=== PATIENT | female | born 1935 | race Caucasian/White ===

== ENCOUNTER 2019-08-24 09:52 | Inpatient (IN) | payer MEDICARE, OTHER ==
[2019-08-25] MEDS ORDERED: Polyethylene Glycol 3350 Powder 17 GM Packet PO PRN (13:41)
[2019-08-25] MEDS: Acetaminophen 325 MG Tab PO PRN ×2 (15:42→22:41)
--- NOTE | 2019-08-25 15:55 | PCM.HP.2 ---
H&P History of Present Illness - General Date of Service: 08/25/19 Admit Problem/Dx: Admission Diagnosis/Problem Admission Diagnosis/Problem Weakness Source of Information: Patient, Family, Old Records History Limitations: Reports: No Limitations - History of Present Illness Initial Comments - Free Text/Narative: Ms Mckenzie is an 84 yo female admitted to because of weakness and ambulatory dysfunction. She was in [facility] due to speech difficultly,encephalopathy secondary to hypertensive emergency, Initially thought o have a stroke but that was ruled out comprehensively. She does also have chronic kyphoscolioses and pain,s/p several surgeries including hip replacements. She lives with grandson who works and is unable to return home independently at this time.Other medical history includes dyslipidemia,anemia,hypercalcemia,hypomagnesemia and chronic kidney disease.She his a poor historian and this history was obtained with the aid if her son and prior records. LEFT HIP\FLANK\LEFT LEG\ACROSS ABDOMEN Pain Score (Numeric/FACES): 9 - Related Data Allergies/Adverse Reactions: Allergies Allergy/AdvReac Type Severity Reaction Status Date / Time No Known Allergies Allergy Verified 08/25/19 15:12 Home Medications: Home Meds Aspirin [Ecotrin EC] 81 mg PO DAILY 08/25/19 [History] Cyanocobalamin (Vitamin B12) [Vitamin B12] 500 mcg PO DAILY 08/25/19 [History] Famotidine 20 mg PO DAILY 08/25/19 [History] Fish Oil/[place]-3 Fatty Acids [Fish Oil 1,000 MG] 1 gm PO DAILY 08/25/19 [History ] Lidocaine/Menthol [Lidopatch] 1 patch TOP DAILY PRN 08/25/19 [History] Magnesium Chloride [Mag-64] 64 mg PO DAILY 08/25/19 [History] Metoprolol Succinate [Toprol XL] 200 mg PO DAILY 08/25/19 [History] NIFEdipine [Procardia XL] 60 mg PO DAILY 08/25/19 [History] Polyethylene Glycol 3350 [MiraLAX] 17 gm PO DAILY PRN 08/25/19 [History] atorvaSTATin [Lipitor] 40 mg PO BEDTIME 08/25/19 [History] Past Medical History HEENT History: Reports: Cataract, Impaired Vision Cardiovascular History: Reports: High Cholesterol, Hypertension, SOB on Exertion Respiratory History: Reports: SOB Gastrointestinal History: Reports: Other (See Below) Other Gastrointestinal History: NAUSEA AT TIMES. HSE COORDINATOR History: Reports: Musculoskeletal History: Reports: Arthritis, Back Pain, Chronic Neurological History: Reports: Other (See Below) Other Neuro History: ? CVA LIKE SYMPTOMS. NO CVA DIAGNOSISED THOUGH. - Infectious Disease History Infectious Disease History: Reports: Chicken Pox, Measles, Mumps - Past Surgical History HEENT Surgical History: Reports: Cataract Surgery Cardiovascular Surgical History: Reports: None Respiratory Surgical History: Reports: None GI Surgical History: Reports: Appendectomy Neurological Surgical History: Reports: None Musculoskeletal Surgical History: Reports: Hip Replacement Other Musculoskeletal Surgeries/Procedures:: TRINO. HIPS, HAD TWO BACK FUSIONS IN PAST. Social & Family History - Family History Family Medical History: Noncontributory - Tobacco Use Smoking Status *Q: Never Smoker Second Hand Smoke Exposure: No - Caffeine Use Caffeine Use: Reports: Coffee - Recreational Drug Use Recreational Drug Use: No H&P Review of Systems - Review of Systems: Review Of Systems: Comprehensive ROS is negative, except as noted in HPI. Exam - Exam Exam: See Below - Vital Signs Vital Signs: Last Vital Signs Temp 97.4 F 08/25/19 12:40 Pulse 64 08/25/19 12:40 Resp 18 08/25/19 12:40 BP 115/61 08/25/19 12:40 Pulse Ox 98 08/25/19 12:40 Weight: 49.101 kg - Exam General: Alert, Oriented HEENT: PERRLA Neck: Supple, Trachea Midline, 2 Lungs: Clear to Auscultation, Normal Respiratory Effort Cardiovascular: Regular Rate, Regular Rhythm GI/Abdominal Exam: Normal Bowel Sounds, Soft, Non-Tender, No Organomegaly, No Distention, No Abnormal Bruit, No Mass, Pelvis Stable (Female) Exam: Deferred Rectal (Female) Exam: Deferred Back Exam: Decreased Range of Motion, Paraspinal Tenderness, Vertebral Tenderness Extremities: Normal Inspection Skin: Warm Neurological: Cranial Nerves Intact Neuro Extensive - Mental Status: Oriented x3 Neuro Extensive - Motor, Sensory, Reflexes: CN II-XII Intact, Normal Gait, Normal Reflexes Psychiatric: Alert Sepsis Event Note - Evaluation Sepsis Screening Result: No Definite Risk - Focused Exam Vital Signs: Vital Signs Temp Pulse Resp BP Pulse Ox 08/25/19 12:40 97.4 F 64 18 115/61 98 Date Exam was Performed: 08/25/19 Time Exam was Performed: 20:08 - Problem List (1) Weakness SNOMED Code(s): 88233298 ICD Code: R53.1 - WEAKNESS Status: Acute Current Visit: Yes (2) HTN (hypertension) SNOMED Code(s): 96784705 ICD Code: I10 - ESSENTIAL (PRIMARY) HYPERTENSION Status: Acute Current Visit: Yes Qualifiers: Hypertension type: essential hypertension Qualified Code(s): I10 - Essential (primary) hypertension (3) Encephalopathy SNOMED Code(s): 34609106 ICD Code: G93.40 - ENCEPHALOPATHY, UNSPECIFIED Status: Acute Current Visit: Yes (4) Frail elderly SNOMED Code(s): 892594546 ICD Code: R54 - AGE-RELATED PHYSICAL DEBILITY Status: Acute Current Visit : Yes (5) Anemia SNOMED Code(s): 266780060 ICD Code: D64.9 - ANEMIA, UNSPECIFIED Status: Acute Current Visit: Yes Qualifiers: Anemia type: iron deficiency (6) Chronic back pain SNOMED Code(s): 600232635 ICD Code: M54.9 - DORSALGIA, UNSPECIFIED; G89.29 - OTHER CHRONIC PAIN Status: Acute Current Visit: Yes Qualifiers: Back pain location: low back pain Back pain laterality: left (7) Hypercalcemia SNOMED Code(s): 95621911 ICD Code: E83.52 - HYPERCALCEMIA Status: Acute Current Visit: Yes (8) Hypomagnesemia SNOMED Code(s): 160552571 ICD Code: E83.42 - HYPOMAGNESEMIA Status: Acute Current Visit: Yes (9) Kyphoscoliosis SNOMED Code(s): 998044537 ICD Code: M41.9 - SCOLIOSIS, UNSPECIFIED Status: Acute Current Visit: Yes (10) HLD (hyperlipidemia) SNOMED Code(s): 26260878 ICD Code: E78.5 - HYPERLIPIDEMIA, UNSPECIFIED Status: Acute Current Visit : Yes Problem List Initiated/Reviewed/Updated: Yes Orders Last 24hrs: Active Orders 24 hr Category Date Time Status Admission Status [Patient Status] [ADT] Routine ADT 08/25/19 12:30 Active Height and Weight [RC] .QFR Care 08/25/19 13:40 Active Oxygen Therapy [RC] PRN Care 08/25/19 13:40 Active Vital Signs [RC] PER UNIT ROUTINE Care 08/25/19 13:40 Active OT Evaluation and Treatment [CONS] Routine Cons 08/25/19 13:40 Active PT Evaluation and Treatment [CONS] Routine Cons 08/25/19 13:40 Active Regular Diet [DIET] Diet 08/25/19 Breakfast Active Acetaminophen [Tylenol] Med 08/25/19 15:19 Active 650 mg PO Q6H PRN Aspirin [Halfprin] Med 08/26/19 09:00 Active 81 mg PO DAILY Cyanocobalamin (Vitamin B12) [Vitamin B12] Med 08/26/19 09:00 Active 500 mcg PO DAILY Famotidine [Pepcid] Med 08/26/19 09:00 Active 20 mg PO DAILY Fish Oil/[place]-3 Fatty Acids [Fish Oil] Med 08/26/19 09:00 Active 1 gm PO DAILY Lidocaine 5% [Lidoderm 5%] Med 08/25/19 14:00 Active 700 mg TRDERM DAILY PRN Magnesium Chloride [Mag-64] Med 08/26/19 09:00 Active 64 mg PO DAILY Metoprolol Succinate [Toprol XL] Med 08/26/19 09:00 Active 200 mg PO DAILY NIFEdipine [Procardia XL] Med 08/26/19 09:00 Active 60 mg PO DAILY Polyethylene Glycol 3350 [MiraLAX] Med 08/25/19 13:41 Active 17 gm PO DAILY PRN Remove Patch Med 08/25/19 13:48 Active 1 brittany WOODY ASDIRECTED PRN atorvaSTATin [Lipitor] Med 08/25/19 21:00 Active 40 mg PO BEDTIME Code Status [Resuscitation Status] Routine Resus Stat 08/25/19 15:03 Ordered Medication Orders Acetaminophen (Tylenol) 650 mg PO Q6H PRN PRN Reason: Pain Last Admin: 08/25/19 15:42 Dose: 650 mg Aspirin (Halfprin) 81 mg PO DAILY ASHLEY Atorvastatin Calcium (Lipitor) 40 mg PO BEDTIME ASHLEY Cyanocobalamin (Vitamin B12) 500 mcg PO DAILY ASHLEY Famotidine (Pepcid) 20 mg PO DAILY ASHLEY Fish Oil (Fish Oil) 1 gm PO DAILY ASHLEY Lidocaine (Lidoderm 5%) 700 mg TRDERM DAILY PRN PRN Reason: PAIN Magnesium Chloride (Mag-64) 64 mg PO DAILY ASHLEY Metoprolol Succinate (Toprol Xl) 200 mg PO DAILY ASHLEY Miscellaneous Information (Remove Patch) 1 ea TRDERM ASDIRECTED PRN PRN Reason: LIDOCAINE REMOVAL Nifedipine (Procardia Xl) 60 mg PO DAILY ASHLEY Polyethylene Glycol (Miralax) 17 gm PO DAILY PRN PRN Reason: Constipation Assessment/Plan Comment:: Admit to SB,with PT and PT consult. Resume Meds from [facility].She is a DNR.
[2019-08-25] MEDS: atorvaSTATin 40 MG Tab PO SCH (20:43)
[2019-08-26] MEDS: Acetaminophen 325 MG Tab PO PRN (05:44)
[2019-08-26] MEDS: Fish Oil/Omega-3 Fatty Acids 1 Gm Cap PO SCH (08:30)
[2019-08-26] MEDS: Aspirin 81 MG Tab.EC PO SCH (08:37)
[2019-08-26] MEDS: Famotidine 20 MG Tab PO SCH (08:37)
[2019-08-26] MEDS: NIFEdipine 60 MG Tab.ER PO SCH (08:37)
[2019-08-26] MEDS: Magnesium Chloride 64 MG Tab.ER PO SCH (08:37)
[2019-08-26] MEDS: Cyanocobalamin (Vitamin B12) 500 MCG Tab PO SCH (08:38)
[2019-08-26] MEDS: Metoprolol Succinate 100 MG Tab.ER PO SCH (08:38)
[2019-08-26] MEDS: Lidocaine 5% 700 MG Patch TRDERM PRN (08:45)
[2019-08-26] MEDS: Acetaminophen 500 MG Tab PO SCH ×2 (13:40→20:48)
[2019-08-26] MEDS: atorvaSTATin 40 MG Tab PO SCH (20:48)
[2019-08-27] MEDS ORDERED: QUEtiapine 25 MG Tab PO PRN (08:27)
[2019-08-27] MEDS: Metoprolol Succinate 100 MG Tab.ER PO SCH (08:39)
[2019-08-27] MEDS: NIFEdipine 60 MG Tab.ER PO SCH (08:39)
[2019-08-27] MEDS: Acetaminophen 500 MG Tab PO SCH ×3 (08:39→21:17)
[2019-08-27] MEDS: Famotidine 20 MG Tab PO SCH (08:39)
[2019-08-27] MEDS: Fish Oil/Omega-3 Fatty Acids 1 Gm Cap PO SCH (08:40)
[2019-08-27] MEDS: Aspirin 81 MG Tab.EC PO SCH (08:40)
[2019-08-27] MEDS: Magnesium Chloride 64 MG Tab.ER PO SCH (08:40)
[2019-08-27] MEDS: Cyanocobalamin (Vitamin B12) 500 MCG Tab PO SCH (08:40)
[2019-08-27] MEDS: atorvaSTATin 40 MG Tab PO SCH (21:17)
[2019-08-28] MEDS: Aspirin 81 MG Tab.EC PO SCH (08:36)
[2019-08-28] MEDS: Fish Oil/Omega-3 Fatty Acids 1 Gm Cap PO SCH (08:36)
[2019-08-28] MEDS: Famotidine 20 MG Tab PO SCH (08:37)
[2019-08-28] MEDS: Cyanocobalamin (Vitamin B12) 500 MCG Tab PO SCH (08:37)
[2019-08-28] MEDS: Acetaminophen 500 MG Tab PO SCH ×3 (08:37→20:44)
[2019-08-28] MEDS: Magnesium Chloride 64 MG Tab.ER PO SCH (08:37)
[2019-08-28] MEDS: Metoprolol Succinate 100 MG Tab.ER PO SCH (08:37)
[2019-08-28] MEDS: Lidocaine 5% 700 MG Patch TRDERM PRN (08:38)
[2019-08-28] MEDS: NIFEdipine 60 MG Tab.ER PO SCH (08:38)
[2019-08-28] MEDS: atorvaSTATin 40 MG Tab PO SCH (20:43)
[2019-08-29] MEDS: Lidocaine 5% 700 MG Patch TRDERM PRN (08:02)
[2019-08-29] MEDS: Metoprolol Succinate 100 MG Tab.ER PO SCH (08:08)
[2019-08-29] MEDS: Famotidine 20 MG Tab PO SCH (08:08)
[2019-08-29] MEDS: Acetaminophen 500 MG Tab PO SCH ×3 (08:08→20:53)
[2019-08-29] MEDS: NIFEdipine 60 MG Tab.ER PO SCH (08:08)
[2019-08-29] MEDS: Cyanocobalamin (Vitamin B12) 500 MCG Tab PO SCH (08:09)
[2019-08-29] MEDS: Aspirin 81 MG Tab.EC PO SCH (08:09)
[2019-08-29] MEDS: Magnesium Chloride 64 MG Tab.ER PO SCH (08:09)
[2019-08-29] MEDS: Fish Oil/Omega-3 Fatty Acids 1 Gm Cap PO SCH (08:09)
[2019-08-29] MEDS: atorvaSTATin 40 MG Tab PO SCH (20:53)
[2019-08-30] MEDS: Magnesium Chloride 64 MG Tab.ER PO SCH (08:31)
[2019-08-30] MEDS: Aspirin 81 MG Tab.EC PO SCH (08:31)
[2019-08-30] MEDS: Fish Oil/Omega-3 Fatty Acids 1 Gm Cap PO SCH (08:31)
[2019-08-30] MEDS: Famotidine 20 MG Tab PO SCH (08:32)
[2019-08-30] MEDS: Acetaminophen 500 MG Tab PO SCH ×3 (08:32→20:39)
[2019-08-30] MEDS: Cyanocobalamin (Vitamin B12) 500 MCG Tab PO SCH (08:32)
[2019-08-30] MEDS: NIFEdipine 60 MG Tab.ER PO SCH (08:32)
[2019-08-30] MEDS: Metoprolol Succinate 100 MG Tab.ER PO SCH (08:33)
[2019-08-30] MEDS: Lidocaine 5% 700 MG Patch TRDERM SCH (08:35)
[2019-08-30] MEDS: atorvaSTATin 40 MG Tab PO SCH (20:38)
[2019-08-31] MEDS: Lidocaine 5% 700 MG Patch TRDERM SCH (08:41)
[2019-08-31] MEDS: Cyanocobalamin (Vitamin B12) 500 MCG Tab PO SCH (08:42)
[2019-08-31] MEDS: NIFEdipine 60 MG Tab.ER PO SCH (08:42)
[2019-08-31] MEDS: Fish Oil/Omega-3 Fatty Acids 1 Gm Cap PO SCH (08:43)
[2019-08-31] MEDS: Famotidine 20 MG Tab PO SCH (08:43)
[2019-08-31] MEDS: Aspirin 81 MG Tab.EC PO SCH (08:43)
[2019-08-31] MEDS: Magnesium Chloride 64 MG Tab.ER PO SCH (08:43)
[2019-08-31] MEDS: Acetaminophen 500 MG Tab PO SCH ×3 (08:43→20:45)
[2019-08-31] MEDS: Metoprolol Succinate 100 MG Tab.ER PO SCH (08:43)
[2019-08-31] MEDS: Naproxen 250 MG Tab PO SCH ×2 (09:56→20:44)
[2019-08-31] MEDS: atorvaSTATin 40 MG Tab PO SCH (20:45)
[2019-09-01] MEDS: Lidocaine 5% 700 MG Patch TRDERM SCH (07:56)
[2019-09-01] MEDS: Aspirin 81 MG Tab.EC PO SCH (08:02)
[2019-09-01] MEDS: Acetaminophen 500 MG Tab PO SCH ×2 (08:02→13:25)
[2019-09-01] MEDS: Cyanocobalamin (Vitamin B12) 500 MCG Tab PO SCH (08:02)
[2019-09-01] MEDS: Famotidine 20 MG Tab PO SCH (08:02)
[2019-09-01] MEDS: NIFEdipine 60 MG Tab.ER PO SCH (08:03)
[2019-09-01] MEDS: Magnesium Chloride 64 MG Tab.ER PO SCH (08:03)
[2019-09-01] MEDS: Fish Oil/Omega-3 Fatty Acids 1 Gm Cap PO SCH (08:03)
[2019-09-01] MEDS: Naproxen 250 MG Tab PO SCH (08:04)
[2019-09-01] MEDS: Metoprolol Succinate 100 MG Tab.ER PO SCH (08:11)
--- NOTE | 2019-09-01 13:58 | PCM.DCSUM1 ---
Discharge Summary - Hospital Course HPI Initial Comments: Ms Mckenzie is an 84 yo female admitted to because of weakness and ambulatory dysfunction. She was in [facility] due to speech difficultly,encephalopathy secondary to hypertensive emergency, Initially thought to have a stroke but that was ruled out comprehensively. She does also have chronic kyphoscolioses and pain, s/p several surgeries including hip replacements. She lives with grandson who works and is unable to return home independently at this time. Other medical history includes dyslipidemia, anemia, hypercalcemia, hypomagnesemia and chronic kidney disease. She is a poor historian and this history was obtained with the aid if her son and prior records. Diagnosis: Stroke: No - Discharge Data Discharge Date: 09/01/19 Discharge Disposition: DC/Tfer to [facility] Condition: Good - Referral to Home Health Primary Care Physician: Farhad Urban MD - Patient Summary/Data Consults: Consultations 08/25/19 13:40 OT Evaluation and Treatment [CONS] Routine Please Evaluate and Treat. OT Reason for Consult: ADL's This query below is only for informational purposes and is not editable. Admission Diagnosis/Problem: Weakness PT Evaluation and Treatment [CONS] Routine Please Evaluate and Treat. PT Reason for Consult: Ambulation This query below is only for informational purposes and is not editable. Admission Diagnosis/Problem: Weakness Hospital Course: PT/OT worked with patient requiring standby assistance with most of her cares due to her memory. Cueing for some ADLs. OT attempted to do a MOCA but patient refused to finish due to frustration. 2nd night of Swing bed stay, she had visual hallucinations seeing men in her room, staff was able to redirect. Got up to the bathroom at night, tried to urinate in the trash can, staff redirected though it took a few attempts. No behaviors noted. Seroquel 12.5 mg at bedtime as needed started but was not required for rest of stay. She has been discharged from rehab services but recommended Memory Care/assisted living did not feel she was safe to go back to her apartment. She will be going to [facility] and requested Sammy Arroyo PA-C at [facility] for primary. - Patient Instructions Diet: Regular Diet as Tolerated Activity: As Tolerated Driving: Do Not Drive Showering/Bathing: May Shower Notify Provider of: Fever, Increased Pain Other/Special Instructions: Follow up with Sammy Arroyo PA-C in 1-2 weeks to establish care at [facility]. - Discharge Plan *PRESCRIPTION DRUG MONITORING PROGRAM REVIEWED*: Not Applicable *COPY OF PRESCRIPTION DRUG MONITORING REPORT IN PATIENT YASMEEN: No Prescriptions/Med Rec: Acetaminophen [Tylenol Extra Strength] 1,000 mg PO TID 30 Days #90 tablet Aspirin [Ecotrin EC] 81 mg PO DAILY 30 Days #30 tablet. atorvaSTATin [Lipitor] 40 mg PO BEDTIME 30 Days #30 tablet Cyanocobalamin (Vitamin B12) [Vitamin B12] 500 mcg PO DAILY 30 Days #30 tablet Famotidine 20 mg PO DAILY 30 Days #30 tablet Fish Oil/[place]-3 Fatty Acids [Fish Oil 1,000 MG] 1 gm PO DAILY 30 Days #30 cap Lidocaine/Menthol [Lidopatch] 1 patch TOP DAILY PRN 30 Days #30 adh..patch PRN Reason: Pain Magnesium Chloride [Mag-64] 64 mg PO DAILY 30 Days #30 tab.er Metoprolol Succinate [Toprol XL] 200 mg PO DAILY 30 Days #30 tab.sr.24h Naproxen [Naprosyn] 250 mg PO Q12H 30 Days #60 tablet NIFEdipine [Procardia XL] 60 mg PO DAILY 30 Days #30 tab.er Polyethylene Glycol 3350 [MiraLAX] 17 gm PO DAILY PRN 30 Days #30 packet PRN Reason: Constipation QUEtiapine [SEROquel] 12.5 mg PO BEDTIME PRN 30 Days #30 tablet PRN Reason: Hallucinations Home Medications: Home Meds Acetaminophen [Tylenol Extra Strength] 1,000 mg PO TID 30 Days #90 tablet [Rx] Aspirin [Ecotrin EC] 81 mg PO DAILY 30 Days #30 tablet. 09/01/19 [Rx] Cyanocobalamin (Vitamin B12) [Vitamin B12] 500 mcg PO DAILY 30 Days #30 tablet 09/01/19 [Rx] Famotidine 20 mg PO DAILY 30 Days #30 tablet 09/01/19 [Rx] Fish Oil/[place]-3 Fatty Acids [Fish Oil 1,000 MG] 1 gm PO DAILY 30 Days #30 cap 09/01/19 [Rx] Lidocaine/Menthol [Lidopatch] 1 patch TOP DAILY PRN 30 Days #30 adh..patch 09/01 [Rx] Magnesium Chloride [Mag-64] 64 mg PO DAILY 30 Days #30 tab.er 09/01/19 [Rx] Metoprolol Succinate [Toprol XL] 200 mg PO DAILY 30 Days #30 tab.sr.24h [Rx] NIFEdipine [Procardia XL] 60 mg PO DAILY 30 Days #30 tab.er 09/01/19 [Rx] Naproxen [Naprosyn] 250 mg PO Q12H 30 Days #60 tablet 09/01/19 [Rx] Polyethylene Glycol 3350 [MiraLAX] 17 gm PO DAILY PRN 30 Days #30 packet [Rx] QUEtiapine [SEROquel] 12.5 mg PO BEDTIME PRN 30 Days #30 tablet 09/01/19 [Rx] Remove Patch 1 ea TRDERM 2000 each 09/01/19 [Rx] atorvaSTATin [Lipitor] 40 mg PO BEDTIME 30 Days #30 tablet 09/01/19 [Rx] Patient Handouts: Cholesterol, [id number]-[id number], Weakness, [id number]-Myez, Hypertension, [id number], Fall Prevention in Hospitals, Adult, Venous Thromboembolism Prevention Referrals: Sammy Arroyo PA [Physician Monitor Car Operator] - - Discharge Summary/Plan Comment DC Time >30 min.: Yes - General Info Date of Service: 09/01/19 Admission Dx/Problem (Free Text: having back pain this morning, doesn't want anything on her back. Up in chair. No chest pain or shortness of breath, abdominal pain. - Patient Data Vitals - Most Recent: Last Vital Signs Temp 97.5 F 09/01/19 08:00 Pulse 74 09/01/19 08:11 Resp 14 09/01/19 08:00 BP 157/66 H 09/01/19 08:11 Pulse Ox 98 09/01/19 08:00 Weight - Most Recent: 108 lb 4 oz Med Orders - Current: Current Medications Acetaminophen (Tylenol Extra Strength) 1,000 mg PO TID [facility] Last Admin: 09/01/19 13:25 Dose: 1,000 mg Aspirin (Halfprin) 81 mg PO DAILY [facility] Last Admin: 09/01/19 08:02 Dose: 81 mg Atorvastatin Calcium (Lipitor) 40 mg PO BEDTIME [facility] Last Admin: 08/31/19 20:45 Dose: 40 mg Cyanocobalamin (Vitamin B12) 500 mcg PO DAILY [facility] Last Admin: 09/01/19 08:02 Dose: 500 mcg Famotidine (Pepcid) 20 mg PO DAILY [facility] Last Admin: 09/01/19 08:02 Dose: 20 mg Fish Oil (Fish Oil) 1 gm PO DAILY [facility] Last Admin: 09/01/19 08:03 Dose: 1 gm Lidocaine (Lidoderm 5%) 700 mg TRDERM DAILY@0800 [facility] Last Admin: 09/01/19 07:56 Dose: 700 mg Magnesium Chloride (Mag-64) 64 mg PO DAILY [facility] Last Admin: 09/01/19 08:03 Dose: 64 mg Metoprolol Succinate (Toprol Xl) 200 mg PO DAILY [facility] Last Admin: 09/01/19 08:11 Dose: 200 mg Miscellaneous Information (Remove Patch) 1 ea TRDERM 2000 [facility] Last Admin: 08/31/19 20:45 Dose: 1 ea Naproxen (Naprosyn) 250 mg PO Q12H [facility] Last Admin: 09/01/19 08:04 Dose: 250 mg Nifedipine (Procardia Xl) 60 mg PO DAILY [facility] Last Admin: 09/01/19 08:03 Dose: 60 mg Polyethylene Glycol (Miralax) 17 gm PO DAILY PRN PRN Reason: Constipation Quetiapine Fumarate (Seroquel) 12.5 mg PO BEDTIME PRN PRN Reason: Hallucinations Discontinued Medications Acetaminophen (Tylenol) 650 mg PO Q6H PRN PRN Reason: Pain Last Admin: 08/26/19 05:44 Dose: 650 mg Lidocaine (Lidoderm 5%) 700 mg TRDERM DAILY PRN PRN Reason: PAIN Last Admin: 08/29/19 08:02 Dose: 700 mg Miscellaneous Information (Remove Patch) 1 ea TRDERM ASDIRECTED PRN PRN Reason: LIDOCAINE REMOVAL Last Admin: 08/28/19 21:00 Dose: 1 ea - Exam General: Reports: Alert, Cooperative, No Acute Distress Lungs: Reports: Clear to Auscultation, Normal Respiratory Effort Cardiovascular: Reports: Regular Rate, Regular Rhythm GI/Abdominal Exam: Normal Bowel Sounds, Soft, Non-Tender, No Distention Psy/Mental Status: Reports: Alert, Other (complaining of back pain, doesn't want anything on her back.)
== END 2019-09-01 14:50 | DRG 948 ==
LOC: FB.MS 08-25 12:30
PROVIDERS: ADMIT Family Medicine; ATTEND Family Medicine
DX: R53.1 Weakness (principal); G93.40 Encephalopathy, unspecified; M41.9 Scoliosis, unspecified; E78.5 Hyperlipidemia, unspecified; N18.9 Chronic kidney disease, unspecified; H54.7 Unspecified visual loss; I12.9 Hypertensive chronic kidney disease with stage 1 through stage 4 chronic kidney disease, or unspecified chronic kidney disease; G89.29 Other chronic pain; M19.90 Unspecified osteoarthritis, unspecified site; Z96.643 Presence of artificial hip joint, bilateral; D50.9 Iron deficiency anemia, unspecified; M54.5 Low back pain; E83.52 Hypercalcemia; E83.42 Hypomagnesemia; Z66 Do not resuscitate; R44.1 Visual hallucinations; Z98.49 Cataract extraction status, unspecified eye; Z79.82 Long term (current) use of aspirin; Z79.899 Other long term (current) drug therapy; Z90.49 Acquired absence of other specified parts of digestive tract; Z98.1 Arthrodesis status
CPT/HCPCS: 97129-GO; 97130-GO; 97161-GP; 97165-GO; 97530-GO; 97530-GP; 97535-GO; A9270-GY

== ENCOUNTER 2019-09-13 21:05 | Emergency (ER) | payer MEDICARE, OTHER ==
--- NOTE | 2019-09-13 21:41 | EDM.PDOC ---
ED HPI GENERAL MEDICAL PROBLEM - General Stated Complaint: HIGH POTASSIUM PER AMBULANCE Time Seen by Provider: 09/13/19 21:38 Source of Information: Reports: Patient History Limitations: Reports: No Limitations - History of Present Illness INITIAL COMMENTS - FREE TEXT/NARRATIVE: 84-year-old female who was brought to the emergency department via ambulance after an outside lab called with reported potassium of 6.4 that was performed through the clinic at [facility] on 09/12/2019. The patient is a resident of a memory care unit at [facility] and there have been no reported symptoms. I am unsure why the patient even had the test performed. The patient is unable to provide me with much in the way of history secondary to some dementia. She is able to tell me that she does have a history of anemia and chronic back pain. He is reporting low back pain and hip pain that is a chronic and continual problem for her. There has been no reports of nausea or vomiting. The patient denies any nausea present. She also reports that she has been eating and drinking normally. She will neither quantitate or qualitate her back pain but does report that she has this pain and seems to be in discomfort with any movement but once again this is chronic. No difficulty breathing or cough. She is not on potassium supplementation. This is really all the history that I can obtain. There are no other associated signs or symptoms. There are no other modifying factors. Onset: Today (Results called to the emergency department nurse around 6 PM tonight) Duration: Constant Location: Reports: Back (Chronic) Quality: Reports: Other (She cannot describe or relate this) Improves with: Reports: None Worsens with: Reports: None Context: Reports: Other (As above) Associated Symptoms: Reports: No Other Symptoms (No other symptoms known.) Treatments REFURBISH TECHNICIAN: Reports: Other (see below) (Nothing) - Related Data Allergies Allergy/AdvReac Type Severity Reaction Status Date / Time No Known Allergies Allergy Verified 08/25/19 15:12 Home Meds: Home Meds Acetaminophen [Tylenol Extra Strength] 1,000 mg PO TID 30 Days #90 tablet [Rx] Aspirin [Ecotrin EC] 81 mg PO DAILY 30 Days #30 tablet. 09/01/19 [Rx] Cyanocobalamin (Vitamin B12) [Vitamin B12] 500 mcg PO DAILY 30 Days #30 tablet 01/16/20 [Rx] Famotidine 20 mg PO DAILY 30 Days #30 tablet 09/01/19 [Rx] Fish Oil/[place]-3 Fatty Acids [Fish Oil 1,000 MG] 1 gm PO DAILY 30 Days #30 cap 09/01/19 [Rx] Lidocaine/Menthol [Lidopatch] 1 patch TOP DAILY PRN 30 Days #30 adh..patch 09/01 [Rx] Magnesium Chloride [Mag-64] 64 mg PO DAILY 30 Days #30 tab.er 09/01/19 [Rx] Metoprolol Succinate [Toprol XL] 200 mg PO DAILY 30 Days #30 tab.sr.24h [Rx] NIFEdipine [Procardia XL] 60 mg PO DAILY 30 Days #30 tab.er 09/01/19 [Rx] Naproxen [Naprosyn] 250 mg PO Q12H 30 Days #60 tablet 09/01/19 [Rx] QUEtiapine [SEROquel] 12.5 mg PO BEDTIME PRN 30 Days #30 tablet 09/01/19 [Rx] Remove Patch 1 ea TRDERM 2000 each 09/01/19 [Rx] atorvaSTATin [Lipitor] 40 mg PO BEDTIME 30 Days #30 tablet 09/01/19 [Rx] polyethylene glycoL 3350 [MiraLAX] 17 gm PO DAILY PRN 30 Days #30 packet [Rx] Past Medical History HEENT History: Reports: Cataract, Impaired Vision Cardiovascular History: Reports: High Cholesterol, Hypertension Gastrointestinal History: Reports: Chronic Constipation Musculoskeletal History: Reports: Arthritis, Back Pain, Chronic Psychiatric History: Reports: Dementia - Infectious Disease History Infectious Disease History: Reports: Chicken Pox, Measles, Mumps - Past Surgical History HEENT Surgical History: Reports: Cataract Surgery GI Surgical History: Reports: Appendectomy Musculoskeletal Surgical History: Reports: Hip Replacement Other Musculoskeletal Surgeries/Procedures:: TRINO. HIPS, HAD TWO BACK FUSIONS IN PAST. Social & Family History - Tobacco Use Smoking Status *Q: Unknown Ever Smoked (Nonsmoker) - Caffeine Use Caffeine Use: Reports: Coffee - Alcohol Use Alcohol Use History: No - Living Situation & Occupation Living situation: Reports: Other (She is a resident of the memory unit at [facility]) ED ROS GENERAL - Review of Systems Review Of Systems: Unable To Obtain Reason Not Obtained: Memory issues; Patient is unreliable ED EXAM, GENERAL - Physical Exam Exam: See Below Exam Limited By: No Limitations General Appearance: Alert, WD/WN, Mild Distress (Appears in some pain but is wake and alert. She does not appear toxic.) Eye Exam: Bilateral Eye: EOMI, Normal Inspection, PERRL Ears: Normal External Exam, Hearing Grossly Normal Ear Exam: Bilateral Ear: Auricle Normal Nose: Normal Inspection, Normal Mucosa, No Blood Throat/Mouth: Normal Inspection, Normal Oropharynx, Normal Voice, No Airway Compromise Head: Atraumatic, Normocephalic Neck: Normal Inspection, Supple, Non-Tender, Full Range of Motion Respiratory/Chest: No Respiratory Distress, Lungs Clear, Normal Breath Sounds, No Accessory Muscle Use, Chest Non-Tender Cardiovascular: Normal Peripheral Pulses, Regular Rate, Rhythm, No JVD Peripheral Pulses: 2+: Radial (L), Radial (R), Dorsalis Pedis (L), Dorsalis Pedis (R) GI/Abdominal: Normal Bowel Sounds, Soft, Non-Tender, No Mass Back Exam: Normal Inspection, Other (Diffuse lumbar back tenderness) Extremities: Normal Inspection, Normal Range of Motion, Non-Tender, No Pedal Edema, Normal Capillary Refill Neurological: Alert, CN II-XII Intact, No Motor/Sensory Deficits, Disoriented Skin Exam: Warm, Dry, Intact, Normal Color, No Rash EKG INTERPRETATION EKG Date: 09/13/19 Time: 21:48 Rhythm: NSR Rate (Beats/Min): 65 [place]: Normal P-Wave: Present QRS: Normal ST-T: Normal QT: Normal Comparison: NA - No Prior EKG Course - Vital Signs Last Recorded V/S: Last Vital Signs Temp 36.4 C 09/13/19 21:15 Pulse 67 09/13/19 21:15 Resp 16 09/13/19 21:15 BP 136/55 L 09/13/19 21:15 Pulse Ox 98 09/13/19 21:15 Orthostatic Blood Pressure [ 126/52 Supine] - Orders/Labs/Meds Orders: Active Orders 24 hr Category Date Time Status EKG Documentation Completion [RC] ASDIRECTED Care 09/13/19 21:41 Active Orthostatic Vital Signs [RC] ONETIME Care 09/13/19 22:21 Active EKG 12 Lead [EK] Routine Ther 09/13/19 21:41 Ordered Labs: Laboratory Tests 01/28/20 01/28/20 Range/Units 21:55 21:55 WBC 5.4 (4.5-12.0) X10-3/uL RBC 2.90 L (3.23-5.20) x10(6)uL Hgb 9.3 L (11.5-15.5) g/dL Hct 27.1 L (30.0-51.3) % MCV 93.7 (80-96) fL MCH 32.3 (27.7-33.6) pg MCHC 34.4 (32.2-35.4) g/dL RDW 13.8 (11.5-15.5) % Plt Count 274 (125-369) X10(3)uL MPV 7.7 (7.4-10.4) fL Neut % (Auto) 60.3 (46-82) % Lymph % (Auto) 24.3 (13-37) % [place] % (Auto) 11.2 (4-12) % Eos % (Auto) 4 (1.0-5.0) % Baso % (Auto) 0 (0-2) % Neut # (Auto) 3.3 (1.6-8.3) # Lymph # (Auto) 1.3 (0.6-5.0) # [place] # (Auto) 0.6 (0.0-1.3) # Eos # (Auto) 0.2 (0.0-0.8) # Baso # (Auto) 0.0 (0.0-0.2) # Sodium 142 (135-145) mmol/L Potassium 5.5 H (3.5-5.3) mmol/L Chloride 109 (100-110) mmol/L Carbon Dioxide 23 (21-32) mmol/L BUN 40 H (7-18) mg/dL Creatinine 1.4 H (0.55-1.02) mg/dL Est Cr Clr Drug Dosing TNP Estimated GFR (MDRD) 36 L (>60) BUN/Creatinine Ratio 28.6 H (9-20) Glucose 129 H (80-116) mg/dL Calcium 10.1 (8.6-10.2) mg/dL Magnesium 1.3 L (1.8-2.5) mg/dL Meds: Medications Discontinued Medications Generic Name Dose Route Start Last Admin Trade Name Freq PRN Reason Stop Dose Admin Magnesium Oxide 800 mg 09/13/19 22:23 Magnesium Oxide PO 09/13/19 22:24 ONETIME ONE - Re-Assessments/Exams Free Text/Narrative Re-Assessment/Exam: 09/14/19 01:16: Patient's potassium today was 5.5. She did have a hemoglobin of 9.3. Her BUN and creatinine are also 40 and 1.4. I have no old labs for comparison other than the report of the potassium of 6.4 from the outside lab. I did have the nursing staff do orthostatic vital signs on the patient and these were normal. I also did a rectal exam on the patient and the stool was Hemoccult negative. The patient also has reported to us that she has a history of anemia. With her potassium now at 5.5 and patient's reports that she is to have her blood counts checked again later this week, I feel that she is stable for discharge back to the [facility] unit facility. Unfortunately, the patient would not be able to go by taxi and there is no one available at [facility] to take the patient back. The patient's son will not be available until 3 AM and the plan will be for him to take her back to [facility] at that time. Departure - Departure Time of Disposition: 02:05 Disposition: DC/Tfer to [facility] 03 Condition: Good (Stable) Clinical Impression: Condition not found Anemia Qualifiers: Anemia type: unspecified type Qualified Code(s): D64.9 - Anemia, unspecified Chronic back pain Qualifiers: Back pain location: back pain in unspecified location Back pain laterality: unspecified Qualified Code(s): M54.9 - Dorsalgia, unspecified Chronic renal insufficiency Qualifiers: Chronic kidney disease stage: unspecified stage Qualified Code(s): N18.9 - Chronic kidney disease, unspecified - Discharge Information Referrals: Farhad Urban MD [Primary Care Provider] - Forms: ED Department Discharge Additional Instructions: The patient's potassium level today was 5.5. She also had evidence of chronic kidney disease and an anemia. These all will need to be followed up through her primary provider this week with recheck of the potassium and further testing for her anemia as per her primary doctor. Back to the emergency department for vomiting, fever or any other concerning sign or symptom. Sepsis Event Note - Focused Exam Vital Signs: Vital Signs Temp Pulse Resp BP Pulse Ox 09/13/19 21:15 36.4 C 67 16 136/55 L 98 Date Exam was Performed: 09/14/19 Time Exam was Performed: 02:46 - My Orders Last 24 Hours: My Active Orders 09/13/19 21:41 EKG Documentation Completion [RC] ASDIRECTED EKG 12 Lead [EK] Routine 09/13/19 22:21 Orthostatic Vital Signs [RC] ONETIME - Assessment/Plan Last 24 Hours: My Active Orders 09/13/19 21:41 EKG Documentation Completion [RC] ASDIRECTED EKG 12 Lead [EK] Routine 09/13/19 22:21 Orthostatic Vital Signs [RC] ONETIME
[2019-09-13] MEDS ORDERED: Magnesium Oxide 400 MG Tab PO ONE (22:23)
== END 2019-09-14 02:15 ==
LOC: FB.ED 21:05
DX: M54.5 Low back pain (principal); G89.29 Other chronic pain; D64.9 Anemia, unspecified; I12.9 Hypertensive chronic kidney disease with stage 1 through stage 4 chronic kidney disease, or unspecified chronic kidney disease; N18.9 Chronic kidney disease, unspecified; E78.00 Pure hypercholesterolemia, unspecified; Z79.82 Long term (current) use of aspirin; Z79.899 Other long term (current) drug therapy
CPT/HCPCS: 36415; 80048; 82272; 83735; 85025; 93005; 99284; 99285-25

== ENCOUNTER 2020-09-04 07:51 | Emergency (ER) | payer MEDICARE, OTHER ==
[2020-09-04] MEDS ORDERED: Acetaminophen 500 MG Tab PO ONE ×2 (09:08→09:48)
[2020-09-04] MEDS ORDERED: Ketorolac 30 MG/ML SDV IVPUSH ONE (09:08)
[2020-09-04] MEDS ORDERED: traMADol 50 MG Tab PO ONE (09:48)
[2020-09-04] MEDS ORDERED: Naproxen 500 MG Tab PO ONE (09:48)
--- NOTE | 2020-09-04 10:28 | CR ---
INDICATION: Fall. BILATERAL HIPS WITH PELVIS: Six images of the pelvis and hips were obtained with frontal and lateral projections of the hips and an AP view of the pelvis. Examination was obtained 09/04/20 - no comparison. Bilateral total hip arthroplasties are noted which appear to be in good position and alignment. There is an appearance of an acute chip fracture fragment along the lateral aspect of the right femoral component at the shaft-greater intertrochanteric interface. Minimal lateral offset of that chip fracture fragment is seen. Deformity is noted at the inferior and superior pubic rami on the right compatible with healed fracture sites. No complicating process is seen at the left total hip arthroplasty. Sacroiliac joints show evidence of degenerative change with no definite acute fracture or dislocation. The right SEBASTIAN grossly appears to be intact except as noted above for the chip fracture fragment adjacent to the femoral component at the greater trochanter - shaft. IMPRESSION: 1. There appears to be an acute chip fracture fragment at the greater trochanter - shaft lateral aspect right proximal femur. Otherwise the total hip arthroplasties bilaterally appear to be satisfactory. 2. What appear to be old fractures with deformity of the inferior and superior pubic rami on the right are noted. 3. Degenerative changes sacroiliac joints. 4. Fusion partially visualized lumbar spine with rods and pedicle screws appearing intact. [facility]
--- NOTE | 2020-09-04 11:16 | EDM.PDOC ---
ED HPI GENERAL MEDICAL PROBLEM - General Chief Complaint: Lower Extremity Injury/Pain Stated Complaint: FELL Time Seen by Provider: 09/04/20 08:00 Source of Information: Reports: Patient History Limitations: Reports: No Limitations - History of Present Illness INITIAL COMMENTS - FREE TEXT/NARRATIVE: Patient presented to the ED because of a right hi pain. She slipped and fell in the bathroom and landed on her right hip. There was no LOC, but is complaining of 7/10 pain worse with movements. No other injuries sustained. - Related Data Allergies Allergy/AdvReac Type Severity Reaction Status Date / Time No Known Allergies Allergy Verified 09/04/20 08:12 Home Meds: Home Meds Acetaminophen [Tylenol Extra Strength] 1,000 mg PO TID 30 Days #90 tablet 09/01/19 [Rx] Aspirin [Ecotrin EC] 81 mg PO DAILY 30 Days #30 tablet.dr 09/01/19 [Rx] Cyanocobalamin (Vitamin B12) [Vitamin B12] 500 mcg PO DAILY 30 Days #30 tablet 09/01/19 [Rx] Famotidine 20 mg PO DAILY 30 Days #30 tablet 09/01/19 [Rx] Fish Oil/[place]-3 Fatty Acids [Fish Oil 1,000 MG] 1 gm PO DAILY 30 Days #30 cap 09/01/19 [Rx] Magnesium Chloride [Mag-64] 64 mg PO DAILY 30 Days #30 tab.er 09/01/19 [Rx] Metoprolol Succinate [Toprol XL] 200 mg PO DAILY 30 Days #30 tab.sr.24h 09/01/19 [Rx] NIFEdipine [Procardia XL] 60 mg PO DAILY 30 Days #30 tab.er 09/01/19 [Rx] QUEtiapine [SEROquel] 12.5 mg PO BEDTIME PRN 30 Days #30 tablet 09/01/19 [Rx] atorvaSTATin [Lipitor] 40 mg PO BEDTIME 30 Days #30 tablet 09/01/19 [Rx] polyethylene glycoL 3350 [MiraLAX] 17 gm PO DAILY PRN 30 Days #30 packet 09/01/19 [Rx] .Licocaine Hcl/Hydrocortisone 1 applic TOP Q8H PRN 09/17/19 [History] Naproxen [Naprosyn] 250 mg PO BID 09/17/19 [History] Naproxen 500 mg PO Q12H #30 tablet 09/04/20 [Rx] traMADol [Ultram] 100 mg PO Q12H PRN #30 tab 09/04/20 [Rx] Past Medical History HEENT History: Reports: Cataract, Impaired Vision Other HEENT History: wears eye glasses. Cardiovascular History: Reports: High Cholesterol, Hypertension Respiratory History: Reports: SOB Other Respiratory History: Patient states her back problems are causing respiratory concerns. Gastrointestinal History: Reports: Chronic Constipation, GERD Other Gastrointestinal History: NAUSEA AT TIMES. Genitourinary History: Reports: Other (See Below) Other Genitourinary History: CKD PRIMARY CARE PHYSICIAN History: Reports: Musculoskeletal History: Reports: Arthritis, Back Pain, Chronic, Osteoarthritis, Osteoporosis, Other (See Below) Other Musculoskeletal History: kyphosis. scoliosis. Neurological History: Reports: Other (See Below) Other Neuro History: ? CVA LIKE SYMPTOMS. NO CVA DIAGNOSISED THOUGH. Psychiatric History: Reports: Dementia Hematologic History: Reports: Anemia, Iron Deficiency - Infectious Disease History Infectious Disease History: Reports: Chicken Pox, Measles, Mumps - Past Surgical History HEENT Surgical History: Reports: Cataract Surgery Cardiovascular Surgical History: Reports: None Respiratory Surgical History: Reports: None GI Surgical History: Reports: Appendectomy Neurological Surgical History: Reports: None Musculoskeletal Surgical History: Reports: Hip Replacement Other Musculoskeletal Surgeries/Procedures:: TRINO. HIPS, HAD TWO BACK FUSIONS IN PAST. Social & Family History - Family History Family Medical History: No Pertinent Family History - Caffeine Use Caffeine Use: Reports: Coffee - Recreational Drug Use Recreational Drug Use: No - Living Situation & Occupation Living situation: Reports: Other (She is a resident of the memory unit at [facility]) Review of Systems - Review of Systems Review Of Systems: See Below Constitutional: Reports: No Symptoms Ears: Reports: No Symptoms Nose: Reports: No Symptoms Mouth/Throat: Reports: No Symptoms Respiratory: Reports: No Symptoms Cardiovascular: Reports: No Symptoms GI/Abdominal: Reports: No Symptoms Genitourinary: Reports: No Symptoms Musculoskeletal: Reports: Other (Right hip pain) Skin: Reports: No Symptoms Neurological: Reports: No Symptoms ED EXAM, GENERAL - Physical Exam Exam: See Below Exam Limited By: No Limitations General Appearance: Alert, No Apparent Distress Ears: Normal External Exam, Normal [place] Nose: Normal Inspection, Normal Mucosa, No Blood Throat/Mouth: Normal Inspection Head: Atraumatic, Normocephalic Neck: Normal Inspection, Supple, Non-Tender, Full Range of Motion Respiratory/Chest: No Respiratory Distress, Lungs Clear, Normal Breath Sounds Cardiovascular: Normal Peripheral Pulses, Regular Rate, Rhythm, No Edema, No Gallop GI/Abdominal: Normal Bowel Sounds, Soft, Non-Tender, No Organomegaly Back Exam: Normal Inspection, Full Range of Motion Extremities: Normal Inspection, Other (tenderness over the right hip) Course - Vital Signs Text/Narrative:: Xray result discussed with patient and son Patient refused to be transferred to [facility] and doesn't want to have anymore surgery. She said she just want conservative management for now. I did discussed the case with Dr Viera(Ortho @ [facility]) and she recommended use of a walker wit assist from bed to chair and once it's healed in 6-6 weeks she can have physical therapy. Last Recorded V/S: Last Vital Signs Temp 36.4 C 09/04/20 07:51 Pulse 71 09/04/20 07:51 Resp 18 09/04/20 07:51 BP 151/40 H 09/04/20 07:51 Pulse Ox 100 09/04/20 07:51 - Orders/Labs/Meds Meds: Medications Discontinued Medications Generic Name Dose Route Start Last Admin Trade Name Aaronq PRN Reason Stop Dose Admin Acetaminophen 1,000 mg 09/04/20 09:08 09/04/20 09:49 Tylenol Extra Strength PO 09/04/20 09:09 Not Given ONETIME ONE Acetaminophen 1,000 mg 09/04/20 09:48 09/04/20 09:57 Tylenol Extra Strength PO 09/04/20 09:49 1,000 mg ONETIME ONE Administration Ketorolac Tromethamine 30 mg 09/04/20 09:08 09/04/20 09:49 Toradol IVPUSH 09/04/20 09:09 Not Given ONETIME ONE Naproxen 500 mg 09/04/20 09:48 09/04/20 09:57 Naprosyn PO 09/04/20 09:49 500 mg ONETIME ONE Administration Tramadol HCl 100 mg 09/04/20 09:48 09/04/20 09:55 Ultram PO 09/04/20 09:49 100 mg ONETIME ONE Administration Departure - Departure Time of Disposition: 11:30 Disposition: DC/Tfer to [facility] Condition: Good Clinical Impression: Femoral fracture, Closed fracture of femur - Discharge Information Prescriptions: Naproxen 500 mg PO Q12H #30 tablet traMADol [Ultram] 100 mg PO Q12H PRN #30 tab PRN Reason: Pain Instructions: Hip Fracture Referrals: PCP,None [Primary Care Provider] - Forms: ED Department Discharge Additional Instructions: Please read discharge instructions on hep fracture Take the following pain medication all at the same time for better pain relief Naproxen 500 mg,tylenol 1000, tramadol 1000 mg every 12 hours as needed for pain You can use your walker with assist from your bed to a chair In 6-8 weeks when your fracture is healed, your primary doctor will order for a physical therapy Sepsis Event Note (ED) - Focused Exam Vital Signs: Vital Signs Temp Pulse Resp BP Pulse Ox 09/04/20 07:51 36.4 C 71 18 151/40 H 100
== END 2020-09-04 12:03 ==
LOC: FB.ED 07:51
DX: S72.91XA Unspecified fracture of right femur, initial encounter for closed fracture (principal); E78.00 Pure hypercholesterolemia, unspecified; K21.9 Gastro-esophageal reflux disease without esophagitis; I12.9 Hypertensive chronic kidney disease with stage 1 through stage 4 chronic kidney disease, or unspecified chronic kidney disease; N18.9 Chronic kidney disease, unspecified; D63.1 Anemia in chronic kidney disease; M19.90 Unspecified osteoarthritis, unspecified site; Z79.82 Long term (current) use of aspirin; Z79.899 Other long term (current) drug therapy; W01.0XXA Fall on same level from slipping, tripping and stumbling without subsequent striking against object, initial encounter; Y92.002 Bathroom of unspecified non-institutional (private) residence as the place of occurrence of the external cause
CPT/HCPCS: 73523; 99284; 99285; A9270-GY

== ENCOUNTER 2020-09-24 20:49 | Emergency (ER) | payer MEDICARE, OTHER ==
[2020-09-24] MEDS ORDERED: Sodium Chloride 0.9% 10 ML Syringe FLUSH PRN (21:13)
[2020-09-24] MEDS ORDERED: Sodium Chloride 0.9% 1,000 ML IV SCH (21:15)
--- NOTE | 2020-09-24 22:03 | EDM.PDOC ---
ED HPI GENERAL MEDICAL PROBLEM - General Chief Complaint: General Stated Complaint: high potassium Time Seen by Provider: 09/24/20 20:55 Source of Information: Reports: Patient History Limitations: Reports: No Limitations - History of Present Illness INITIAL COMMENTS - FREE TEXT/NARRATIVE: Patient presented to the ED from the [facility] because of an elevated K of 6.7 She also c/o weakness and and diarrhea for 3 days. there is no nausea or vomiting. No fever/chills, cough or cold symptoms. right hip Pain Score (Numeric/FACES): 4 - Related Data Allergies Allergy/AdvReac Type Severity Reaction Status Date / Time No Known Allergies Allergy Verified 09/24/20 21:11 Home Meds: Home Meds Acetaminophen [Tylenol Extra Strength] 1,000 mg PO TID 30 Days #90 tablet 09/01/19 [Rx] Cyanocobalamin (Vitamin B12) [Vitamin B12] 500 mcg PO DAILY 30 Days #30 tablet 09/01/19 [Rx] Fish Oil/[place]-3 Fatty Acids [Fish Oil 1,000 MG] 1 gm PO DAILY 30 Days #30 cap 09/01/19 [Rx] Magnesium Chloride [Mag-64] 64 mg PO DAILY 30 Days #30 tab.er 09/01/19 [Rx] Metoprolol Succinate [Toprol XL] 200 mg PO DAILY 30 Days #30 tab.sr.24h 09/01/19 [Rx] NIFEdipine [Procardia XL] 60 mg PO DAILY 30 Days #30 tab.er 09/01/19 [Rx] QUEtiapine [SEROquel] 12.5 mg PO BEDTIME PRN 30 Days #30 tablet 09/01/19 [Rx] atorvaSTATin [Lipitor] 40 mg PO BEDTIME 30 Days #30 tablet 09/01/19 [Rx] polyethylene glycoL 3350 [MiraLAX] 17 gm PO DAILY PRN 30 Days #30 packet 09/01/19 [Rx] .Licocaine Hcl/Hydrocortisone 1 applic TOP Q8H PRN 09/17/19 [History] Naproxen 500 mg PO Q12H #30 tablet 09/04/20 [Rx] Diclofenac Sodium 1 applic TOP QID 09/24/20 [History] Gabapentin [Neurontin] 100 mg PO BEDTIME 09/24/20 [History] traMADol [Ultram] 100 mg PO TID 09/24/20 [History] Past Medical History HEENT History: Reports: Cataract, Impaired Vision Other HEENT History: wears eye glasses. Cardiovascular History: Reports: High Cholesterol, Hypertension Respiratory History: Reports: SOB Other Respiratory History: Patient states her back problems are causing respiratory concerns. Gastrointestinal History: Reports: Chronic Constipation, GERD Other Gastrointestinal History: NAUSEA AT TIMES. 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 scoliosis. Neurological History: Reports: Other (See Below) Other Neuro History: ? CVA LIKE SYMPTOMS. NO CVA DIAGNOSISED THOUGH. Psychiatric History: Reports: Dementia Hematologic History: Reports: Anemia, Iron Deficiency - Infectious Disease History Infectious Disease History: Reports: Chicken Pox, Measles, Mumps - Past Surgical History HEENT Surgical History: Reports: Cataract Surgery Cardiovascular Surgical History: Reports: None Respiratory Surgical History: Reports: None GI Surgical History: Reports: Appendectomy Neurological Surgical History: Reports: None Musculoskeletal Surgical History: Reports: Hip Replacement Other Musculoskeletal Surgeries/Procedures:: TRINO. HIPS, HAD TWO BACK FUSIONS IN PAST. Social & Family History - Family History Family Medical History: No Pertinent Family History - Caffeine Use Caffeine Use: Reports: Coffee - Living Situation & Occupation Living situation: Reports: Other (She is a resident of the memory unit at [facility]) ED ROS GENERAL - Review of Systems Review Of Systems: See Below Constitutional: Reports: No Symptoms HEENT: Reports: No Symptoms Respiratory: Reports: No Symptoms Cardiovascular: Reports: No Symptoms Endocrine: Reports: No Symptoms GI/Abdominal: Reports: Diarrhea, Nausea Musculoskeletal: Reports: No Symptoms Skin: Reports: No Symptoms Neurological: Reports: No Symptoms Psychiatric: Reports: No Symptoms ED EXAM, GENERAL - Physical Exam Exam: See Below Exam Limited By: No Limitations General Appearance: Alert, No Apparent Distress Eye Exam: Bilateral Eye: PERRL Ears: Normal External Exam, Normal Canal Nose: Normal Inspection, Normal Mucosa, No Blood Throat/Mouth: Normal Inspection Head: Atraumatic, Normocephalic Neck: Normal Inspection, Supple, Non-Tender, Full Range of Motion Respiratory/Chest: No Respiratory Distress, Lungs Clear, Normal Breath Sounds, No Accessory Muscle Use, Chest Non-Tender Cardiovascular: Normal Peripheral Pulses, Regular Rate, Rhythm, No Edema, No Gallop, No JVD, No Murmur, No Rub GI/Abdominal: Normal Bowel Sounds, Soft, Non-Tender, No Organomegaly Back Exam: Normal Inspection, Full Range of Motion Extremities: Normal Inspection, Normal Range of Motion Course - Vital Signs Text/Narrative:: Labs/EKG was discussed with patient Repeat K=4.7 NS 1 L bolus Last Recorded V/S: Last Vital Signs Temp 36.1 C 09/24/20 20:50 Pulse 70 09/24/20 23:30 Resp 16 09/24/20 23:30 BP 121/55 L 09/24/20 23:30 Pulse Ox 97 09/24/20 23:30 - Orders/Labs/Meds Orders: Active Orders 24 hr Category Date Time Status Saline Lock Insert [OM.PC] Routine Oth 09/24/20 21:13 Ordered EKG 12 Lead [EK] Routine Ther 09/24/20 20:57 Ordered Labs: Laboratory Tests 09/24/20 09/24/20 09/24/20 Range/Units 21:15 21:15 21:15 WBC 11.3 H (3.0-10.3) x10-3/uL RBC 2.63 L (3.60-5.20) x10(6)uL Hgb 8.2 L (11.4-15.5) g/dL Hct 26.3 L (34.2-48.2) % MCV 100.1 (76.7-100.5) fL MCH 31.4 (23.9-33.9) pg MCHC 31.4 L (31.9-34.8) g/dL RDW 14.7 (12.3-16.5) % Plt Count 370 (151-488) x10(3)uL MPV 7.5 (7.1-12.4) fL Neut % (Auto) 75.7 (30.8-76.2) % Lymph % (Auto) 8.9 L (18.4-52.1) % [place] % (Auto) 13.0 (4.4-15.7) % Eos % (Auto) 2.1 (0.6-8.1) % Baso % (Auto) 0.3 (0.2-1.5) % Neut # (Auto) 8.6 H (1.5-6.3) x10-3/uL Lymph # (Auto) 1.0 (1.0-4.4) x10-3/uL [place] # (Auto) 1.5 H (0.3-1.0) x10-3/uL Eos # (Auto) 0.2 (0.0-0.8) x10-3/uL Baso # (Auto) 0.0 (0.0-0.1) x10-3/uL Sodium 134 L (135-145) mmol/L Potassium 4.7 (3.5-5.3) mmol/L Chloride 102 D (100-110) mmol/L Carbon Dioxide 17 L (21-32) mmol/L BUN 48 H (7-18) mg/dL Creatinine 1.3 H (0.55-1.02) mg/dL Est Cr Clr Drug Dosing TNP Estimated GFR (MDRD) 39 L (>60) BUN/Creatinine Ratio 36.9 H (9-20) Glucose 125 H (80-116) mg/dL Calcium 10.6 H (8.6-10.2) mg/dL Total Bilirubin 0.2 (0.1-1.3) mg/dL AST 26 H (5-25) IU/L ALT 24 (12-36) U/L Alkaline Phosphatase 261 H (56-112) IU/L Troponin I 8.0 (4.0-60.3) pg/mL Total Protein 7.0 (6.0-8.0) g/dL Albumin 2.5 L (3.2-4.6) g/dL Globulin 4.5 g/dL Albumin/Globulin Ratio 0.6 Meds: Medications Discontinued Medications Generic Name Dose Route Start Last Admin Trade Name Freq PRN Reason Stop Dose Admin Sodium Chloride 1,000 mls @ 999 mls/hr 09/24/20 21:15 09/24/20 22:20 Normal Saline IV 999 mls/hr ASDIRECTED ASHLEY Administration Sodium Chloride 10 ml 09/24/20 21:13 Saline Flush FLUSH ASDIRECTED PRN Keep Vein Open Departure - Departure Time of Disposition: 23:00 Disposition: Home, Self-Care 01 Condition: Good Clinical Impression: Dehydration - Discharge Information Instructions: Viral Gastroenteritis, Adult, Dehydration, Adult, [id number] Referrals: Farhad Urban MD [Primary Care Provider] - Forms: ED Department Discharge Additional Instructions: Please read discharge instructions on dehydration Increase oral fluids Imodium 1-2 tablets every 6 hours as needed for diarrhrea Follow up as needed Sepsis Event Note (ED) - Focused Exam Vital Signs: Vital Signs Pulse Resp BP Pulse Ox 09/24/20 23:30 70 16 121/55 L 97 - My Orders Last 24 Hours: My Active Orders 09/24/20 20:57 EKG 12 Lead [EK] Routine 09/24/20 21:13 Saline Lock Insert [OM.PC] Routine - Assessment/Plan Last 24 Hours: My Active Orders 09/24/20 20:57 EKG 12 Lead [EK] Routine 09/24/20 21:13 Saline Lock Insert [OM.PC] Routine
== END 2020-09-24 23:40 | disposition home or self-care (01) ==
LOC: FB.ED 20:49
DX: E86.0 Dehydration (principal); E78.00 Pure hypercholesterolemia, unspecified; I12.9 Hypertensive chronic kidney disease with stage 1 through stage 4 chronic kidney disease, or unspecified chronic kidney disease; N18.9 Chronic kidney disease, unspecified; M41.9 Scoliosis, unspecified; Z79.899 Other long term (current) drug therapy
CPT/HCPCS: 36415; 80053; 84484; 85025; 93005; 99285; J7030; 99283

== ENCOUNTER 2021-01-01 10:26 | Observation (INO) | payer MEDICARE, OTHER ==
[2021-01-01] MEDS ORDERED: Sodium Chloride 0.9% 10 ML Syringe FLUSH PRN (11:39)
[2021-01-01] MEDS ORDERED: Labetalol 20 MG/4 ML Syringe IVPUSH ONE (11:39)
[2021-01-01] MEDS ORDERED: Acetaminophen 500 MG Tab PO ONE (11:42)
[2021-01-01] MEDS ORDERED: traMADol 50 MG Tab PO STA (11:42)
[2021-01-01] MEDS ORDERED: Metoprolol Succinate 100 MG Tab.ER PO STA (11:44)
[2021-01-01] MEDS ORDERED: NIFEdipine 60 MG Tab.ER PO STA (11:44)
[2021-01-01] MEDS ORDERED: Sodium Chloride 0.9% 1,000 ML IV SCH ×2 (11:45→14:00)
--- NOTE | 2021-01-01 11:55 | EDM.PDOC ---
ED HPI GENERAL MEDICAL PROBLEM - General Chief Complaint: General Stated Complaint: UNRESPONSIVE Time Seen by Provider: 01/01/21 10:30 Source of Information: Reports: Patient History Limitations: Reports: Altered Mental Status - History of Present Illness INITIAL COMMENTS - FREE TEXT/NARRATIVE: Patient presented to the ED because of an unresponsive episode this morning. Staff at the [facility] was trying to wake her up but she was unresponsive. Patient said that she was having a foggy kind of feeling that's why she wasn't responding. She has poor appetite for the past week and her health is going downhill per [facility] staff. She normally ambulate and can bathe herself now she can't do all those things. There is no fever, chills,cough or cold. No N/V/D noted. Lower back Pain Score (Numeric/FACES): 3 DENIES ANY PAIN WHEN ASKED AT PRESENT TIME. Pain Score (Numeric/FACES): 0 - Related Data Allergies Allergy/AdvReac Type Severity Reaction Status Date / Time No Known Allergies Allergy Verified 01/01/21 15:07 Home Meds: Home Meds Cyanocobalamin (Vitamin B12) [Vitamin B12] 500 mcg PO DAILY 30 Days #30 tablet 09/01/19 [Rx] Fish Oil/Many-3 Fatty Acids [Fish Oil 1,000 MG] 1 gm PO DAILY 30 Days #30 cap 09/01/19 [Rx] Metoprolol Succinate [Toprol XL] 200 mg PO DAILY 30 Days #30 tab.sr.24h 09/01/19 [Rx] NIFEdipine [Procardia XL] 60 mg PO DAILY 30 Days #30 tab.er 09/01/19 [Rx] atorvaSTATin [Lipitor] 40 mg PO BEDTIME 30 Days #30 tablet 09/01/19 [Rx] polyethylene glycoL 3350 [MiraLAX] 17 gm PO DAILY PRN 30 Days #30 packet 09/01/19 [Rx] .Licocaine Hcl/Hydrocortisone 1 applic RECTAL Q8H PRN 09/17/19 [History] Diclofenac Sodium 2 gm TOP QID 09/24/20 [History] Gabapentin [Neurontin] 100 mg PO BEDTIME 09/24/20 [History] traMADol [Ultram] 100 mg PO TID 09/24/20 [History] Acetaminophen [Tylenol Extra Strength] 1,000 mg PO TID 01/01/21 [History] Acetaminophen [Tylenol Extra Strength] 500 mg PO Q12H PRN 01/01/21 [History] Celecoxib [CeleBREX] 100 mg PO DAILY PRN 01/01/21 [History] Lidocaine 5% [Lidoderm 5%] 1 patch TOP DAILY 01/01/21 [History] Loperamide [Imodium] 2 mg PO BID PRN 01/01/21 [History] Magnesium Chloride [Mag-64] 2 tab PO DAILY 01/01/21 [History] Naproxen 500 mg PO Q12H PRN 01/01/21 [History] QUEtiapine [SEROquel] 12.5 mg PO BEDTIME PRN 01/01/21 [History] cephALEXin [Keflex] 500 mg PO TID 01/01/21 [History] Past Medical History HEENT History: Reports: Cataract, Impaired Vision Other HEENT History: wears eye glasses. Cardiovascular History: Reports: High Cholesterol, Hypertension Respiratory History: Reports: SOB Other Respiratory History: Patient states her back problems are causing respiratory concerns. Gastrointestinal History: Reports: Chronic Constipation, GERD Other Gastrointestinal History: NAUSEA AT TIMES. 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 scoliosis. right hip fracture unfixed Neurological History: Reports: Other (See Below) Other Neuro History: ? CVA LIKE SYMPTOMS. NO CVA DIAGNOSISED THOUGH. Psychiatric History: Reports: Dementia Hematologic History: Reports: Anemia, Iron Deficiency - Infectious Disease History Infectious Disease History: Reports: Chicken Pox, Measles, Mumps - Past Surgical History HEENT Surgical History: Reports: Cataract Surgery Cardiovascular Surgical History: Reports: None Respiratory Surgical History: Reports: None GI Surgical History: Reports: Appendectomy Neurological Surgical History: Reports: None Musculoskeletal Surgical History: Reports: Hip Replacement Other Musculoskeletal Surgeries/Procedures:: TRINO. HIPS, HAD TWO BACK FUSIONS IN PAST. Social & Family History - Family History Family Medical History: No Pertinent Family History - Tobacco Use Tobacco Use Status *Q: Unknown Ever Used Tobacco - Caffeine Use Caffeine Use: Reports: Coffee - Recreational Drug Use Recreational Drug Use: No - Living Situation & Occupation Living situation: Reports: Other (She is a resident of the memory unit at [facility]) ED ROS GENERAL - Review of Systems Review Of Systems: See Below Constitutional: Reports: Weakness HEENT: Reports: No Symptoms Respiratory: Reports: No Symptoms Cardiovascular: Reports: No Symptoms Endocrine: Reports: No Symptoms GI/Abdominal: Reports: No Symptoms : Reports: No Symptoms Musculoskeletal: Reports: Other (Rt hip pain) Skin: Reports: No Symptoms Neurological: Reports: Weakness Psychiatric: Reports: No Symptoms ED EXAM, GENERAL - Physical Exam Exam: See Below Exam Limited By: No Limitations General Appearance: Lethargic Eye Exam: Bilateral Eye: PERRL Ears: Normal External Exam, Normal Canal Nose: Normal Inspection, Normal Mucosa, No Blood Throat/Mouth: Normal Inspection, Normal Lips, Normal Teeth Head: Atraumatic, Normocephalic Neck: Normal Inspection, Supple, Non-Tender, Full Range of Motion Respiratory/Chest: No Respiratory Distress, Lungs Clear, Normal Breath Sounds, No Accessory Muscle Use, Chest Non-Tender Cardiovascular: Normal Peripheral Pulses, Regular Rate, Rhythm, No Edema, No Gallop, No JVD, No Murmur, No Rub GI/Abdominal: Normal Bowel Sounds, Soft, Non-Tender, No Organomegaly Back Exam: Normal Inspection, Full Range of Motion Extremities: Normal Inspection, Normal Range of Motion, Non-Tender, No Pedal Edema, Normal Capillary Refill Neurological: Alert, Oriented, CN II-XII Intact, Slow to Respond Psychiatric: Normal Affect Course - Vital Signs Text/Narrative:: Lab/CXR result was reviewed and discussed with patient NS 1 L in 2 hours Tramadol 100 mg PO x1 Rocephin 1 gm iV x 1 Nifedipine 670 mg PO x1 Metoprolol Succinate 200 mg PO x1 Code Status: DNR/DNI Case discussed with Dr Matt Last Recorded V/S: Last Vital Signs Temp 36.9 C 01/01/21 18:48 Pulse 58 L 01/01/21 18:48 Resp 18 01/01/21 18:48 BP 167/65 H 01/01/21 18:48 Pulse Ox 96 01/01/21 18:48 - Orders/Labs/Meds Orders: Active Orders 24 hr Category Date Time Status Sodium Chloride 0.9% [Saline Flush] Med 01/01/21 11:39 Active 10 ml FLUSH ASDIRECTED PRN Saline Lock Insert [OM.PC] Routine Oth 01/01/21 11:39 Ordered Medication Orders Acetaminophen (Acetaminophen 500 Mg Tab) 500 mg PO Q12H PRN PRN Reason: Pain Acetaminophen (Acetaminophen 500 Mg Tab) 1,000 mg PO TID [facility] Last Admin: 01/01/21 20:31 Dose: 1,000 mg Documented by: IMTIAZ Atorvastatin Calcium (Atorvastatin 40 Mg Tab *Ptom) 40 mg PO BEDTIME [facility] Last Admin: 01/01/21 20:31 Dose: 40 mg Documented by: IMTIAZ Ceftriaxone Sodium (Ceftriaxone 1 Gm Vial) 1 gm IVPUSH Q24H [facility] Last Admin: 01/01/21 14:01 Dose: 1 gm Documented by: LIS Celecoxib (Celecoxib 100 Mg Cap) 100 mg PO DAILY PRN PRN Reason: Pain Cyanocobalamin (Cyanocobalamin (Vitamin B12) 500 Mcg Tab *Ptom) 500 mcg PO DAILY [facility] Diclofenac Sodium (Diclofenac Sodium 1% Gel 100 Gm Tube) 2 gm TOP QID [facility] Last Admin: 01/01/21 20:34 Dose: 1 applic Documented by: Admin: 01/01/21 17:30 Dose: 1 applic Documented by: DORA Enoxaparin Sodium (Enoxaparin 30 Mg/0.3 Ml Syringe) 30 mg SUBCUT Q24H [facility] Last Admin: 01/01/21 15:48 Dose: 30 mg Documented by: DOAR Fish Oil (Fish Oil/Many-3 Fatty Acids 1 Gm Cap *Ptom) 1 gm PO DAILY [facility] Gabapentin (Gabapentin 100 Mg Cap *Ptom) 100 mg PO BEDTIME [facility] Last Admin: 01/01/21 20:32 Dose: 100 mg Documented by: IMTIAZ Magnesium Chloride (Magnesium Chloride 64 Mg Tab.Er *Ptom) 128 mg PO DAILY [facility] Nifedipine (Nifedipine 60 Mg Tab.Er *Ptom) 60 mg PO DAILY [facility] Non-Formulary Medication (.Licocaine Hcl/Hydrocortisone) 1 applic RECTAL Q8H PRN PRN Reason: Hemmorhoids Pain/Itch Non-Formulary Medication (Lidocaine 5% [Lidoderm 5%]) 1 patch TOP DAILY [facility] Metoprolol Er 200mg (Tab *Ptom) 0 each PO DAILY [facility] Ondansetron HCl (Ondansetron 4 Mg/2 Ml Sdv) 4 mg IVPUSH Q4H PRN PRN Reason: Nausea/Vomiting Polyethylene Glycol (Polyethylene Glycol 3350 Powder 17 Gm Packet) 17 gm PO DAILY PRN PRN Reason: Constipation Quetiapine Fumarate (Quetiapine 25 Mg Tab) 12.5 mg PO BEDTIME PRN PRN Reason: Sleep Senna/Docusate Sodium (Docusate Sodium/Sennosides 50-8.6 Mg Tab) 1 tab PO BID PRN PRN Reason: Constipation Sodium Chloride (Sodium Chloride 0.9% 10 Ml Syringe) 10 ml FLUSH ASDIRECTED PRN PRN Reason: Keep Vein Open Last Admin: 01/01/21 12:10 Dose: 10 ml Documented by: LIS Tramadol HCl (Tramadol 50 Mg Tab) 100 mg PO TID ASHLEY Last Admin: 01/01/21 20:38 Dose: 100 mg Documented by: IMTIAZ Labs: Laboratory Tests 01/01/21 01/01/21 01/01/21 Range/Units 10:55 10:55 10:55 WBC 7.1 (3.0-10.3) x10-3/uL RBC 4.32 (3.60-5.20) x10(6)uL Hgb 13.1 D (11.4-15.5) g/dL Hct 40.9 D (34.2-48.2) % MCV 94.8 (76.7-100.5) fL MCH 30.4 (23.9-33.9) pg MCHC 32.1 (31.9-34.8) g/dL RDW 14.0 (12.3-16.5) % Plt Count 235 (151-488) x10(3)uL MPV 8.7 (7.1-12.4) fL Neut % (Auto) 59.3 (30.8-76.2) % Lymph % (Auto) 25.9 (18.4-52.1) % [place] % (Auto) 11.6 (4.4-15.7) % Eos % (Auto) 2.9 (0.6-8.1) % Baso % (Auto) 0.3 (0.2-1.5) % Neut # (Auto) 4.2 (1.5-6.3) x10-3/uL Lymph # (Auto) 1.8 (1.0-4.4) x10-3/uL [place] # (Auto) 0.8 (0.3-1.0) x10-3/uL Eos # (Auto) 0.2 (0.0-0.8) x10-3/uL Baso # (Auto) 0.0 (0.0-0.1) x10-3/uL Sodium 136 (135-145) mmol/L Potassium 4.9 (3.5-5.3) mmol/L Chloride 101 (100-110) mmol/L Carbon Dioxide 25 (21-32) mmol/L BUN 28 H D (7-18) mg/dL Creatinine 1.2 H (0.55-1.02) mg/dL Est Cr Clr Drug Dosing 24.17 mL/min Estimated GFR (MDRD) 43 L (>60) BUN/Creatinine Ratio 23.3 H (9-20) Glucose 102 (80-116) mg/dL Lactic Acid (0.4-2.0) mmol/L Calcium 10.6 H (8.6-10.2) mg/dL Total Bilirubin 0.2 (0.1-1.3) mg/dL AST 39 H D (5-25) IU/L ALT 35 D (12-36) U/L Alkaline Phosphatase 298 H (56-112) IU/L Troponin I 7.7 (4.0-60.3) pg/mL Total Protein 7.9 (6.0-8.0) g/dL Albumin 3.5 (3.2-4.6) g/dL Globulin 4.4 g/dL Albumin/Globulin Ratio 0.8 SARS-CoV-2 RNA (SANDOVAL) (NEGATIVE) 01/01/21 01/01/21 Range/Units 10:55 11:50 WBC (3.0-10.3) x10-3/uL RBC (3.60-5.20) x10(6)uL Hgb (11.4-15.5) g/dL Hct (34.2-48.2) % MCV (76.7-100.5) fL MCH (23.9-33.9) pg MCHC (31.9-34.8) g/dL RDW (12.3-16.5) % Plt Count (151-488) x10(3)uL MPV (7.1-12.4) fL Neut % (Auto) (30.8-76.2) % Lymph % (Auto) (18.4-52.1) % [place] % (Auto) (4.4-15.7) % Eos % (Auto) (0.6-8.1) % Baso % (Auto) (0.2-1.5) % Neut # (Auto) (1.5-6.3) x10-3/uL Lymph # (Auto) (1.0-4.4) x10-3/uL [place] # (Auto) (0.3-1.0) x10-3/uL Eos # (Auto) (0.0-0.8) x10-3/uL Baso # (Auto) (0.0-0.1) x10-3/uL Sodium (135-145) mmol/L Potassium (3.5-5.3) mmol/L Chloride (100-110) mmol/L Carbon Dioxide (21-32) mmol/L BUN (7-18) mg/dL Creatinine (0.55-1.02) mg/dL Est Cr Clr Drug Dosing mL/min Estimated GFR (MDRD) (>60) BUN/Creatinine Ratio (9-20) Glucose (80-116) mg/dL Lactic Acid 1.2 (0.4-2.0) mmol/L Calcium (8.6-10.2) mg/dL Total Bilirubin (0.1-1.3) mg/dL AST (5-25) IU/L ALT (12-36) U/L Alkaline Phosphatase (56-112) IU/L Troponin I (4.0-60.3) pg/mL Total Protein (6.0-8.0) g/dL Albumin (3.2-4.6) g/dL Globulin g/dL Albumin/Globulin Ratio SARS-CoV-2 RNA (SANDOVAL) Negative (NEGATIVE) Meds: Medications Generic Name Dose Route Start Last Admin Trade Name Freq PRN Reason Stop Dose Admin Acetaminophen 500 mg 01/01/21 13:52 Acetaminophen 500 Mg Tab PO Q12H PRN Pain Acetaminophen 1,000 mg 01/01/21 21:00 01/01/21 20:31 Acetaminophen 500 Mg Tab PO 1,000 mg TID ASHLEY Administration Atorvastatin Calcium 40 mg 01/01/21 21:00 01/01/21 20:31 Atorvastatin 40 Mg Tab *Ptom PO 40 mg BEDTIME ASHLEY Administration Ceftriaxone Sodium 1 gm 01/01/21 14:00 01/01/21 14:01 Ceftriaxone 1 Gm Vial IVPUSH 1 gm Q24H ASHLEY Administration Celecoxib 100 mg 01/01/21 13:52 Celecoxib 100 Mg Cap PO DAILY PRN Pain Cyanocobalamin 500 mcg 01/02/21 09:00 Cyanocobalamin (Vitamin B12) 500 Mcg Tab *Ptom PO DAILY [facility] Diclofenac Sodium 2 gm 01/01/21 17:00 01/01/21 20:34 Diclofenac Sodium 1% Gel 100 Gm Tube TOP 1 applic QID ASHLEY Administration Enoxaparin Sodium 30 mg 01/01/21 14:00 01/01/21 15:48 Enoxaparin 30 Mg/0.3 Ml Syringe SUBCUT 30 mg Q24H ASHLEY Administration Fish Oil 1 gm 01/02/21 09:00 Fish Oil/Many-3 Fatty Acids 1 Gm Cap *Ptom PO DAILY ASHLEY Gabapentin 100 mg 01/01/21 21:00 01/01/21 20:32 Gabapentin 100 Mg Cap *Ptom PO 100 mg BEDTIME [facility] Administration Magnesium Chloride 128 mg 01/02/21 09:00 Magnesium Chloride 64 Mg Tab.Er *Ptom PO DAILY [facility] Nifedipine 60 mg 01/02/21 09:00 Nifedipine 60 Mg Tab.Er *Ptom PO DAILY [facility] Non-Formulary Medication 1 applic 01/01/21 13:52 .Licocaine Hcl/Hydrocortisone RECTAL Q8H PRN Hemmorhoids Pain/Itch Non-Formulary Medication 1 patch 01/02/21 09:00 Lidocaine 5% [Lidoderm 5%] TOP DAILY [facility] Metoprolol Er 200mg 0 each 01/02/21 09:00 Tab *Ptom PO DAILY [facility] Ondansetron HCl 4 mg 01/01/21 13:41 Ondansetron 4 Mg/2 Ml Sdv IVPUSH Q4H PRN Nausea/Vomiting Polyethylene Glycol 17 gm 01/01/21 13:52 Polyethylene Glycol 3350 Powder 17 Gm Packet PO DAILY PRN Constipation Quetiapine Fumarate 12.5 mg 01/01/21 13:52 Quetiapine 25 Mg Tab PO BEDTIME PRN Sleep Senna/Docusate Sodium 1 tab 01/01/21 13:41 Docusate Sodium/Sennosides 50-8.6 Mg Tab PO BID PRN Constipation Sodium Chloride 10 ml 01/01/21 11:39 01/01/21 12:10 Sodium Chloride 0.9% 10 Ml Syringe FLUSH 10 ml ASDIRECTED PRN Administration Keep Vein Open Tramadol HCl 100 mg 01/01/21 21:00 01/01/21 20:38 Tramadol 50 Mg Tab PO 100 mg TID ASHLEY Administration Discontinued Medications Generic Name Dose Route Start Last Admin Trade Name Freq PRN Reason Stop Dose Admin Acetaminophen 1,000 mg 01/01/21 11:42 01/01/21 11:57 Acetaminophen 500 Mg Tab PO 01/01/21 11:43 1,000 mg ONETIME ONE Administration Sodium Chloride 1,000 mls @ 500 mls/hr 01/01/21 11:45 01/01/21 12:10 Normal Saline IV 500 mls/hr ASDIRECTED ASHLEY Administration Sodium Chloride 1,000 mls @ 100 mls/hr 01/01/21 14:00 01/01/21 14:11 Normal Saline IV 100 mls/hr ASDIRECTED ASHLEY Administration Labetalol HCl 20 mg 01/01/21 11:39 01/01/21 12:11 Labetalol 20 Mg/4 Ml Syringe IVPUSH 01/01/21 11:40 Not Given ONETIME ONE Protocol Metoprolol Succinate 200 mg 01/01/21 11:44 01/01/21 11:58 Metoprolol Succinate 100 Mg Tab.Er PO 01/01/21 11:45 200 mg NOW STA Administration Miscellaneous Information 1 ea 01/01/21 21:00 01/01/21 20:50 Remove Patch TRDERM 01/01/21 21:01 Not Given ONETIME ONE Naproxen 500 mg 01/01/21 13:52 Naproxen 500 Mg Tab PO Q12H PRN Pain Nifedipine 60 mg 01/01/21 11:44 01/01/21 11:59 Nifedipine 60 Mg Tab.Er PO 01/01/21 11:45 60 mg NOW STA Administration Tramadol HCl 50 mg 01/01/21 11:42 01/01/21 11:57 Tramadol 50 Mg Tab PO 01/01/21 11:43 50 mg NOW STA Administration Tramadol HCl 50 mg 01/01/21 14:45 01/01/21 15:47 Tramadol 50 Mg Tab PO 01/01/21 14:46 50 mg ONETIME ONE Administration Departure - Departure Time of Disposition: 14:30 Disposition: Refer to Observation Clinical Impression: UTI, Urinary tract infectious disease, Dehydration, Encephalopathy, CKD (chronic kidney disease) - Discharge Information Sepsis Event Note (ED) - Evaluation Sepsis Screening Result: No Definite Risk - Focused Exam Vital Signs: Vital Signs Temp Pulse Pulse Resp BP BP Pulse Ox 01/01/21 13:11 72 18 162/60 H 98 01/01/21 11:58 76 194/76 H 01/01/21 11:31 72 18 194/72 H 97 01/01/21 10:26 36.4 C 68 18 185/64 H 96 - My Orders Last 24 Hours: My Active Orders 01/01/21 11:39 Sodium Chloride 0.9% [Saline Flush] 10 ml FLUSH ASDIRECTED PRN Saline Lock Insert [OM.PC] Routine - Assessment/Plan Last 24 Hours: My Active Orders 01/01/21 11:39 Sodium Chloride 0.9% [Saline Flush] 10 ml FLUSH ASDIRECTED PRN Saline Lock Insert [OM.PC] Routine
[2021-01-01] MEDS ORDERED: Ondansetron 4 MG/2 ML SDV IVPUSH PRN (13:41)
[2021-01-01] MEDS ORDERED: Acetaminophen 500 MG Tab PO PRN (13:52)
[2021-01-01] MEDS ORDERED: HYDROCORTISONE RECTAL PRN (13:52)
[2021-01-01] MEDS ORDERED: QUEtiapine 25 MG Tab PO PRN (13:52)
[2021-01-01] MEDS ORDERED: Celecoxib 100 MG Cap PO PRN (13:52)
[2021-01-01] MEDS ORDERED: Naproxen 500 MG Tab PO PRN (13:52)
[2021-01-01] MEDS ORDERED: Polyethylene Glycol 3350 Powder 17 GM Packet PO PRN (13:52)
[2021-01-01] MEDS ORDERED: LIDOCAINE RECTAL PRN (13:52)
[2021-01-01] MEDS ORDERED: Acetaminophen 500 MG Tab PO SCH (14:00)
[2021-01-01] MEDS ORDERED: cefTRIAXone 1 GM Vial IVPUSH SCH (14:00)
[2021-01-01] MEDS ORDERED: traMADol 50 MG Tab PO SCH (14:00)
[2021-01-01] MEDS ORDERED: cefTRIAXone 1 GM in Sodium Chloride 0.9% 50 ML IV SCH (14:00)
[2021-01-01] MEDS ORDERED: Enoxaparin 30 MG/0.3 ML Syringe SUBCUT SCH (14:00)
[2021-01-01] MEDS ORDERED: traMADol 50 MG Tab PO ONE (14:45)
--- NOTE | 2021-01-01 16:52 | CR ---
CHEST ONE VIEW 9825 INDICATION: Weakness. An AP upright portable view of the chest was obtained 01/01/2021--no comparison. The heart did not appear grossly enlarged. The aorta is tortuous with minimal calcification in the arch. Overlying EKG lead snaps are noted. Heavy markings at the lung bases are emphasized by the poor inspiration and may represent fibrosis or simply the poor inspiration. Minimal patchy pneumonia is difficult to entirely exclude especially at the right lung base due to the poor inspiration. No definite consolidating pneumonia or definite effusion was seen. Degenerative changes are noted at the glenohumeral joints, right greater than left. IMPRESSION: 1. No definite acute process but difficult to exclude fibrosis versus patchy bronchopneumonia and possibly atelectasis at the lung bases especially on the right. 2. ASD aorta. MTDD
[2021-01-01] MEDS: Diclofenac Sodium 1% Gel 100 GM Tube TOP SCH ×2 (17:30→20:34)
--- NOTE | 2021-01-01 17:48 | PCM.HP.2 ---
H&P History of Present Illness - General Date of Service: 01/01/21 Admit Problem/Dx: Admission Diagnosis/Problem Admission Diagnosis/Problem UTI (urinary tract infection) due to urinary indwelling catheter Source of Information: Patient, Old Records History Limitations: Reports: No Limitations - History of Present Illness Initial Comments - Free Text/Narative: Is an 85-year-old female patient states that she was sleeping in the chair and this morning the staff at [facility] came to arouse her and they couldn't because she was unresponsive. He brought her to the ER and was found to be dehydrated and have a UTI. She says she can't think very clearly at this point. She denies fevers or she does feel cold. She denies chest pain, shortness of breath, dysuria, pyuria, hematuria, abdominal pain or diarrhea. Lower back Pain Score (Numeric/FACES): 3 DENIES ANY PAIN WHEN ASKED AT PRESENT TIME. Pain Score (Numeric/FACES): 0 - Related Data Allergies/Adverse Reactions: Allergies Allergy/AdvReac Type Severity Reaction Status Date / Time No Known Allergies Allergy Verified 01/01/21 15:07 Home Medications: Home Meds Cyanocobalamin (Vitamin B12) [Vitamin B12] 500 mcg PO DAILY 30 Days #30 tablet 09/01/19 [Rx] Fish Oil/[place]-3 Fatty Acids [Fish Oil 1,000 MG] 1 gm PO DAILY 30 Days #30 cap 09/01/19 [Rx] Metoprolol Succinate [Toprol XL] 200 mg PO DAILY 30 Days #30 tab.sr.24h 09/01/19 [Rx] NIFEdipine [Procardia XL] 60 mg PO DAILY 30 Days #30 tab.er 09/01/19 [Rx] atorvaSTATin [Lipitor] 40 mg PO BEDTIME 30 Days #30 tablet 09/01/19 [Rx] polyethylene glycoL 3350 [MiraLAX] 17 gm PO DAILY PRN 30 Days #30 packet 09/01/19 [Rx] .Licocaine Hcl/Hydrocortisone 1 applic RECTAL Q8H PRN 09/17/19 [History] Diclofenac Sodium 2 gm TOP QID 09/24/20 [History] Gabapentin [Neurontin] 100 mg PO BEDTIME 09/24/20 [History] traMADol [Ultram] 100 mg PO TID 09/24/20 [History] Acetaminophen [Tylenol Extra Strength] 1,000 mg PO TID 01/01/21 [History] Acetaminophen [Tylenol Extra Strength] 500 mg PO Q12H PRN 01/01/21 [History] Celecoxib [CeleBREX] 100 mg PO DAILY PRN 01/01/21 [History] Lidocaine 5% [Lidoderm 5%] 1 patch TOP DAILY 01/01/21 [History] Loperamide [Imodium] 2 mg PO BID PRN 01/01/21 [History] Magnesium Chloride [Mag-64] 2 tab PO DAILY 01/01/21 [History] Naproxen 500 mg PO Q12H PRN 01/01/21 [History] QUEtiapine [SEROquel] 12.5 mg PO BEDTIME PRN 01/01/21 [History] cephALEXin [Keflex] 500 mg PO TID 01/01/21 [History] Past Medical History HEENT History: Reports: Cataract, Impaired Vision Other HEENT History: wears eye glasses. Cardiovascular History: Reports: High Cholesterol, Hypertension Respiratory History: Reports: SOB Other Respiratory History: Patient states her back problems are causing respiratory concerns. Gastrointestinal History: Reports: Chronic Constipation, GERD Other Gastrointestinal History: NAUSEA AT TIMES. Genitourinary History: Reports: Other (See Below) Other Genitourinary History: CKD [employer] History: Reports: Musculoskeletal History: Reports: Arthritis, Back Pain, Chronic, Osteoarthritis, Osteoporosis, Other (See Below) Other Musculoskeletal History: kyphosis. scoliosis. right hip fracture unfixed Neurological History: Reports: Other (See Below) Other Neuro History: ? CVA LIKE SYMPTOMS. NO CVA DIAGNOSISED THOUGH. Psychiatric History: Reports: Dementia Hematologic History: Reports: Anemia, Iron Deficiency - Infectious Disease History Infectious Disease History: Reports: Chicken Pox, Measles, Mumps - Past Surgical History HEENT Surgical History: Reports: Cataract Surgery Cardiovascular Surgical History: Reports: None Respiratory Surgical History: Reports: None GI Surgical History: Reports: Appendectomy Neurological Surgical History: Reports: None Musculoskeletal Surgical History: Reports: Hip Replacement Other Musculoskeletal Surgeries/Procedures:: TRINO. HIPS, HAD TWO BACK FUSIONS IN PAST. Social & Family History - Family History Family Medical History: No Pertinent Family History - Tobacco Use Tobacco Use Status *Q: Unknown Ever Used Tobacco Second Hand Smoke Exposure: No - Caffeine Use Caffeine Use: Reports: Coffee - Recreational Drug Use Recreational Drug Use: No - Living Situation & Occupation Living situation: Reports: Other (She is a resident of the memory unit at [facility]) H&P Review of Systems - Review of Systems: Review Of Systems: See Below General: Reports: Weakness HEENT: Reports: No Symptoms Pulmonary: Reports: No Symptoms Cardiovascular: Reports: No Symptoms Gastrointestinal: Reports: No Symptoms Genitourinary: Reports: No Symptoms Musculoskeletal: Reports: No Symptoms Skin: Reports: No Symptoms Psychiatric: Reports: Confusion Neurological: Reports: No Symptoms Hematologic/Lymphatic: Reports: No Symptoms Immunologic: Reports: No Symptoms Exam - Exam Exam: See Below - Vital Signs Vital Signs: Last Vital Signs Temp 98.1 F 01/01/21 14:45 Pulse 67 01/01/21 14:45 Resp 18 01/01/21 14:45 BP 191/65 H 01/01/21 14:45 Pulse Ox 97 01/01/21 14:45 Weight: 102 lb 1 oz - Exam General: Alert, Oriented, Cooperative HEENT: Posterior Pharynx Clear, TMs Clear Neck: Supple, Trachea Midline Lungs: Clear to Auscultation, Normal Respiratory Effort Cardiovascular: Regular Rate, Regular Rhythm. No: Systolic Murmur GI/Abdominal Exam: Normal Bowel Sounds, Soft, Non-Tender, No Distention Back Exam: Normal Inspection Extremities: Normal Inspection, Non-Tender, No Pedal Edema Skin: Warm, Dry Neuro Extensive - Mental Status: Alert, Normal Mood/Affect Psychiatric: Alert, Normal Affect, Normal Mood - Patient Data Lab Results Last 24 hrs: Laboratory Results - last 24 hr 01/01/21 01/01/21 01/01/21 Range/Units 10:55 10:55 10:55 WBC 7.1 (3.0-10.3) x10-3/uL RBC 4.32 (3.60-5.20) x10(6)uL Hgb 13.1 D (11.4-15.5) g/dL Hct 40.9 D (34.2-48.2) % MCV 94.8 (76.7-100.5) fL MCH 30.4 (23.9-33.9) pg MCHC 32.1 (31.9-34.8) g/dL RDW 14.0 (12.3-16.5) % Plt Count 235 (151-488) x10(3)uL MPV 8.7 (7.1-12.4) fL Neut % (Auto) 59.3 (30.8-76.2) % Lymph % (Auto) 25.9 (18.4-52.1) % [place] % (Auto) 11.6 (4.4-15.7) % Eos % (Auto) 2.9 (0.6-8.1) % Baso % (Auto) 0.3 (0.2-1.5) % Neut # (Auto) 4.2 (1.5-6.3) x10-3/uL Lymph # (Auto) 1.8 (1.0-4.4) x10-3/uL [place] # (Auto) 0.8 (0.3-1.0) x10-3/uL Eos # (Auto) 0.2 (0.0-0.8) x10-3/uL Baso # (Auto) 0.0 (0.0-0.1) x10-3/uL Sodium 136 (135-145) mmol/L Potassium 4.9 (3.5-5.3) mmol/L Chloride 101 (100-110) mmol/L Carbon Dioxide 25 (21-32) mmol/L BUN 28 H D (7-18) mg/dL Creatinine 1.2 H (0.55-1.02) mg/dL Est Cr Clr Drug Dosing 24.17 mL/min Estimated GFR (MDRD) 43 L (>60) BUN/Creatinine Ratio 23.3 H (9-20) Glucose 102 (80-116) mg/dL Lactic Acid (0.4-2.0) mmol/L Calcium 10.6 H (8.6-10.2) mg/dL Total Bilirubin 0.2 (0.1-1.3) mg/dL AST 39 H D (5-25) IU/L ALT 35 D (12-36) U/L Alkaline Phosphatase 298 H (56-112) IU/L Troponin I 7.7 (4.0-60.3) pg/mL Total Protein 7.9 (6.0-8.0) g/dL Albumin 3.5 (3.2-4.6) g/dL Globulin 4.4 g/dL Albumin/Globulin Ratio 0.8 SARS-CoV-2 RNA (SANDOVAL) (NEGATIVE) 01/01/21 01/01/21 Range/Units 10:55 11:50 WBC (3.0-10.3) x10-3/uL RBC (3.60-5.20) x10(6)uL Hgb (11.4-15.5) g/dL Hct (34.2-48.2) % MCV (76.7-100.5) fL MCH (23.9-33.9) pg MCHC (31.9-34.8) g/dL RDW (12.3-16.5) % Plt Count (151-488) x10(3)uL MPV (7.1-12.4) fL Neut % (Auto) (30.8-76.2) % Lymph % (Auto) (18.4-52.1) % [place] % (Auto) (4.4-15.7) % Eos % (Auto) (0.6-8.1) % Baso % (Auto) (0.2-1.5) % Neut # (Auto) (1.5-6.3) x10-3/uL Lymph # (Auto) (1.0-4.4) x10-3/uL [place] # (Auto) (0.3-1.0) x10-3/uL Eos # (Auto) (0.0-0.8) x10-3/uL Baso # (Auto) (0.0-0.1) x10-3/uL Sodium (135-145) mmol/L Potassium (3.5-5.3) mmol/L Chloride (100-110) mmol/L Carbon Dioxide (21-32) mmol/L BUN (7-18) mg/dL Creatinine (0.55-1.02) mg/dL Est Cr Clr Drug Dosing mL/min Estimated GFR (MDRD) (>60) BUN/Creatinine Ratio (9-20) Glucose (80-116) mg/dL Lactic Acid 1.2 (0.4-2.0) mmol/L Calcium (8.6-10.2) mg/dL Total Bilirubin (0.1-1.3) mg/dL AST (5-25) IU/L ALT (12-36) U/L Alkaline Phosphatase (56-112) IU/L Troponin I (4.0-60.3) pg/mL Total Protein (6.0-8.0) g/dL Albumin (3.2-4.6) g/dL Globulin g/dL Albumin/Globulin Ratio SARS-CoV-2 RNA (SANDOVAL) Negative (NEGATIVE) Result Diagrams: 01/01/21 10:55 01/01/21 10:55 Sepsis Event Note - Evaluation Sepsis Screening Result: No Definite Risk - Focused Exam Vital Signs: Vital Signs Temp Pulse Pulse Resp BP BP Pulse Ox 01/01/21 14:45 98.1 F 67 18 191/65 H 97 01/01/21 14:42 98.1 F 72 18 191/65 H 100 01/01/21 13:11 72 18 162/60 H 98 01/01/21 11:58 76 194/76 H 01/01/21 11:31 72 18 194/72 H 97 01/01/21 10:26 97.6 F 68 18 185/64 H 96 - Problem List (1) UTI (urinary tract infection) SNOMED Code(s): 17500326 ICD Code: N39.0 - URINARY TRACT INFECTION, SITE NOT SPECIFIED Status: Acute Current Visit: Yes (2) Palliative care status SNOMED Code(s): 069111513 ICD Code: Z51.5 - ENCOUNTER FOR PALLIATIVE CARE Status: Acute Current Visit: Yes (3) Dehydration SNOMED Code(s): 50448036 ICD Code: E86.0 - DEHYDRATION Status: Acute Current Visit: No (4) Frail elderly SNOMED Code(s): 238185308 ICD Code: R54 - AGE-RELATED PHYSICAL DEBILITY Status: Acute Current Visit: No Problem List Initiated/Reviewed/Updated: Yes Orders Last 24hrs: Active Orders 24 hr Category Date Time Status Patient Status [ADT] Routine ADT 01/01/21 13:41 Active Intake and Output [RC] QSHIFT Care 01/01/21 13:45 Active Oxygen Therapy [RC] PRN Care 01/01/21 13:41 Active Pulse Oximetry [RC] PRN Care 01/01/21 13:45 Active Up to Chair [RC] ASDIRECTED Care 01/01/21 13:41 Active VTE/DVT Education [RC] Per Unit Routine Care 01/01/21 13:41 Active Vital Signs [RC] Q4H Care 01/01/21 13:41 Active OT Evaluation and Treatment [CONS] Routine Cons 01/01/21 13:41 Active PT Evaluation and Treatment [CONS] Routine Cons 01/01/21 13:41 Active Regular Diet [DIET] Diet 01/01/21 Dinner Ordered BASIC METABOLIC PANEL,BMP [CHEM] AM Lab 01/02/21 05:11 Ordered MAGNESIUM [CHEM] AM Lab 01/02/21 05:11 Ordered .Licocaine Hcl/Hydrocortisone Med 01/01/21 13:52 Pending 1 applic RECTAL Q8H PRN Acetaminophen [Tylenol Extra Strength] Med 01/01/21 21:00 Active 1,000 mg PO TID Acetaminophen [Tylenol Extra Strength] Med 01/01/21 13:52 Active 500 mg PO Q12H PRN Celecoxib [CeleBREX] Med 01/01/21 13:52 Active 100 mg PO DAILY PRN Cyanocobalamin (Vitamin B12) [Vitamin B12] Med 01/02/21 09:00 Active 500 mcg PO DAILY Diclofenac Sodium [Voltaren 1% Gel] Med 01/01/21 17:00 Active 2 gm TOP QID Docusate Sodium/Sennosides [Senna Plus] Med 01/01/21 13:41 Active 1 tab PO BID PRN Enoxaparin [Lovenox] Med 01/01/21 14:00 Active 30 mg SUBCUT Q24H Fish Oil/[place]-3 Fatty Acids [Fish Oil] Med 01/02/21 09:00 Active 1 gm PO DAILY Gabapentin [Neurontin] Med 01/01/21 21:00 Active 100 mg PO BEDTIME Lidocaine 5% [Lidoderm 5%] Med 01/02/21 09:00 Pending 1 patch TOP DAILY Magnesium Chloride [Mag-64] Med 01/02/21 09:00 Active 128 mg PO DAILY NIFEdipine [Procardia XL] Med 01/02/21 09:00 Active 60 mg PO DAILY Non-Formulary Medication [NF Drug] Med 01/02/21 09:00 Active 0 each PO DAILY Ondansetron [Zofran] Med 01/01/21 13:41 Active 4 mg IVPUSH Q4H PRN QUEtiapine [SEROqueL] Med 01/01/21 13:52 Active 12.5 mg PO BEDTIME PRN Remove Patch Med 01/01/21 21:00 Once 1 ea TRDERM ONETIME ONE Sodium Chloride 0.9% [Normal Saline] 1,000 ml Med 01/01/21 14:00 Active IV ASDIRECTED Sodium Chloride 0.9% [Saline Flush] Med 01/01/21 11:39 Active 10 ml FLUSH ASDIRECTED PRN atorvaSTATin [Lipitor] Med 01/01/21 21:00 Active 40 mg PO BEDTIME cefTRIAXone [Rocephin] Med 01/01/21 14:00 Active 1 gm IVPUSH Q24H polyethylene glycoL 3350 [MiraLAX] Med 01/01/21 13:52 Active 17 gm PO DAILY PRN traMADol [Ultram] Med 01/01/21 21:00 Active 100 mg PO TID Saline Lock Insert [OM.PC] Routine Oth 01/01/21 11:39 Ordered Sequential Compression Device [OM.PC] Per Unit Routine Oth 01/01/21 13:45 Ordered Resuscitation Status Routine Resus Stat 01/01/21 13:41 Ordered Medication Orders Acetaminophen (Acetaminophen 500 Mg Tab) 500 mg PO Q12H PRN PRN Reason: Pain Acetaminophen (Acetaminophen 500 Mg Tab) 1,000 mg PO TID [facility] Atorvastatin Calcium (Atorvastatin 40 Mg Tab *Ptom) 40 mg PO BEDTIME [facility] Ceftriaxone Sodium (Ceftriaxone 1 Gm Vial) 1 gm IVPUSH Q24H [facility] Last Admin: 01/01/21 14:01 Dose: 1 gm Documented by: LIS Celecoxib (Celecoxib 100 Mg Cap) 100 mg PO DAILY PRN PRN Reason: Pain Cyanocobalamin (Cyanocobalamin (Vitamin B12) 500 Mcg Tab *Ptom) 500 mcg PO DAILY [facility] Diclofenac Sodium (Diclofenac Sodium 1% Gel 100 Gm Tube) 2 gm TOP QID [facility] Enoxaparin Sodium (Enoxaparin 30 Mg/0.3 Ml Syringe) 30 mg SUBCUT Q24H [facility] Last Admin: 01/01/21 15:48 Dose: 30 mg Documented by: DORA Fish Oil (Fish Oil/[place]-3 Fatty Acids 1 Gm Cap *Ptom) 1 gm PO DAILY [facility] Gabapentin (Gabapentin 100 Mg Cap *Ptom) 100 mg PO BEDTIME [facility] Sodium Chloride (Normal Saline) 1,000 mls @ 100 mls/hr IV ASDIRECTED [facility] Last Admin: 01/01/21 14:11 Dose: 100 mls/hr Documented by: LIS Magnesium Chloride (Magnesium Chloride 64 Mg Tab.Er *Ptom) 128 mg PO DAILY [facility] Miscellaneous Information (Remove Patch) 1 ea TRDERM ONETIME ONE Stop: 01/01/21 21:01 Nifedipine (Nifedipine 60 Mg Tab.Er *Ptom) 60 mg PO DAILY [facility] Non-Formulary Medication (.Licocaine Hcl/Hydrocortisone) 1 applic RECTAL Q8H PRN PRN Reason: Hemmorhoids Pain/Itch Non-Formulary Medication (Lidocaine 5% [Lidoderm 5%]) 1 patch TOP DAILY [facility] Metoprolol Er 200mg (Tab *Ptom) 0 each PO DAILY [facility] Ondansetron HCl (Ondansetron 4 Mg/2 Ml Sdv) 4 mg IVPUSH Q4H PRN PRN Reason: Nausea/Vomiting Polyethylene Glycol (Polyethylene Glycol 3350 Powder 17 Gm Packet) 17 gm PO DAILY PRN PRN Reason: Constipation Quetiapine Fumarate (Quetiapine 25 Mg Tab) 12.5 mg PO BEDTIME PRN PRN Reason: Sleep Senna/Docusate Sodium (Docusate Sodium/Sennosides 50-8.6 Mg Tab) 1 tab PO BID PRN PRN Reason: Constipation Sodium Chloride (Sodium Chloride 0.9% 10 Ml Syringe) 10 ml FLUSH ASDIRECTED PRN PRN Reason: Keep Vein Open Last Admin: 01/01/21 12:10 Dose: 10 ml Documented by: LIS Tramadol HCl (Tramadol 50 Mg Tab) 100 mg PO TID [facility] Assessment/Plan Comment:: 1. Admit for observation. 2. IV fluids 3. Up with assist 4. Lovenox for clot prophylaxis. SCD 5. Rocephin for 6. Regular diet 10. DNR/DNI - Mortality Measure Prognosis:: Good
[2021-01-01] MEDS: Acetaminophen 500 MG Tab PO SCH (20:31)
[2021-01-01] MEDS: traMADol 50 MG Tab PO SCH (20:38)
[2021-01-01] MEDS ORDERED: atorvaSTATin 40 MG Tab *PTOM PO SCH (21:00)
[2021-01-01] MEDS ORDERED: Gabapentin 100 MG Cap *PTOM PO SCH (21:00)
[2021-01-02] MEDS: traMADol 50 MG Tab PO SCH (08:38)
[2021-01-02] MEDS: Acetaminophen 500 MG Tab PO SCH (08:39)
[2021-01-02] MEDS: Diclofenac Sodium 1% Gel 100 GM Tube TOP SCH (08:41)
[2021-01-02] MEDS ORDERED: Magnesium Chloride 64 MG Tab.ER *PTOM PO SCH (09:00)
[2021-01-02] MEDS ORDERED: OMEGA PO SCH (09:00)
[2021-01-02] MEDS ORDERED: Non-Formulary Medication 1 Each (Lidocaine 5% [Lidoderm 5%] 700 MG Patch) TOP SCH (09:00)
[2021-01-02] MEDS ORDERED: FATTY ACIDS PO SCH (09:00)
[2021-01-02] MEDS ORDERED: FISH OIL PO SCH (09:00)
[2021-01-02] MEDS ORDERED: CYANOCOBALAMIN 500 MCG PO SCH (09:00)
[2021-01-02] MEDS ORDERED: NIFEDIPINE 60 MG PO SCH (09:00)
[2021-01-02] MEDS ORDERED: METOPROLOL 200 MG PO SCH (09:00)
--- NOTE | 2021-01-02 10:32 | PCM.PN ---
- General Info Date of Service: 01/02/21 Admission Dx/Problem (Free Text): Patient says she's doing well. She feels good and alert. She denies fevers, chills, cough, dysuria, pyuria, hematuria. - Patient Data Vitals - Most Recent: Last Vital Signs Temp 98.1 F 01/02/21 07:20 Pulse 68 01/02/21 07:20 Resp 18 01/02/21 07:20 BP 150/61 H 01/02/21 07:20 Pulse Ox 98 01/02/21 07:20 Weight - Most Recent: 102 lb 1 oz I&O - Last 24 Hours: Intake & Output 01/01/21 01/02/21 01/02/21 22:59 06:59 14:59 Intake Total 450 200 400 Output Total 600 300 400 Balance -150 -100 0 Lab Results Last 24 Hours: Laboratory Results - last 24 hr 01/01/21 01/01/21 01/01/21 Range/Units 10:55 10:55 10:55 WBC 7.1 (3.0-10.3) x10-3/uL RBC 4.32 (3.60-5.20) x10(6)uL Hgb 13.1 D (11.4-15.5) g/dL Hct 40.9 D (34.2-48.2) % MCV 94.8 (76.7-100.5) fL MCH 30.4 (23.9-33.9) pg MCHC 32.1 (31.9-34.8) g/dL RDW 14.0 (12.3-16.5) % Plt Count 235 (151-488) x10(3)uL MPV 8.7 (7.1-12.4) fL Neut % (Auto) 59.3 (30.8-76.2) % Lymph % (Auto) 25.9 (18.4-52.1) % [place] % (Auto) 11.6 (4.4-15.7) % Eos % (Auto) 2.9 (0.6-8.1) % Baso % (Auto) 0.3 (0.2-1.5) % Neut # (Auto) 4.2 (1.5-6.3) x10-3/uL Lymph # (Auto) 1.8 (1.0-4.4) x10-3/uL [place] # (Auto) 0.8 (0.3-1.0) x10-3/uL Eos # (Auto) 0.2 (0.0-0.8) x10-3/uL Baso # (Auto) 0.0 (0.0-0.1) x10-3/uL Sodium 136 (135-145) mmol/L Potassium 4.9 (3.5-5.3) mmol/L Chloride 101 (100-110) mmol/L Carbon Dioxide 25 (21-32) mmol/L BUN 28 H D (7-18) mg/dL Creatinine 1.2 H (0.55-1.02) mg/dL Est Cr Clr Drug Dosing 24.17 mL/min Estimated GFR (MDRD) 43 L (>60) BUN/Creatinine Ratio 23.3 H (9-20) Glucose 102 (80-116) mg/dL Lactic Acid (0.4-2.0) mmol/L Calcium 10.6 H (8.6-10.2) mg/dL Magnesium (1.8-2.5) mg/dL Total Bilirubin 0.2 (0.1-1.3) mg/dL AST 39 H D (5-25) IU/L ALT 35 D (12-36) U/L Alkaline Phosphatase 298 H (56-112) IU/L Troponin I 7.7 (4.0-60.3) pg/mL Total Protein 7.9 (6.0-8.0) g/dL Albumin 3.5 (3.2-4.6) g/dL Globulin 4.4 g/dL Albumin/Globulin Ratio 0.8 SARS-CoV-2 RNA (SANDOVAL) (NEGATIVE) 01/01/21 01/01/21 01/02/21 Range/Units 10:55 11:50 05:55 WBC (3.0-10.3) x10-3/uL RBC (3.60-5.20) x10(6)uL Hgb (11.4-15.5) g/dL Hct (34.2-48.2) % MCV (76.7-100.5) fL MCH (23.9-33.9) pg MCHC (31.9-34.8) g/dL RDW (12.3-16.5) % Plt Count (151-488) x10(3)uL MPV (7.1-12.4) fL Neut % (Auto) (30.8-76.2) % Lymph % (Auto) (18.4-52.1) % [place] % (Auto) (4.4-15.7) % Eos % (Auto) (0.6-8.1) % Baso % (Auto) (0.2-1.5) % Neut # (Auto) (1.5-6.3) x10-3/uL Lymph # (Auto) (1.0-4.4) x10-3/uL [place] # (Auto) (0.3-1.0) x10-3/uL Eos # (Auto) (0.0-0.8) x10-3/uL Baso # (Auto) (0.0-0.1) x10-3/uL Sodium 137 (135-145) mmol/L Potassium 4.7 (3.5-5.3) mmol/L Chloride 104 (100-110) mmol/L Carbon Dioxide 25 (21-32) mmol/L BUN 25 H (7-18) mg/dL Creatinine 1.1 H (0.55-1.02) mg/dL Est Cr Clr Drug Dosing 26.37 mL/min Estimated GFR (MDRD) 47 L (>60) BUN/Creatinine Ratio 22.7 H (9-20) Glucose 90 (80-116) mg/dL Lactic Acid 1.2 (0.4-2.0) mmol/L Calcium 9.3 (8.6-10.2) mg/dL Magnesium 1.2 L* (1.8-2.5) mg/dL Total Bilirubin (0.1-1.3) mg/dL AST (5-25) IU/L ALT (12-36) U/L Alkaline Phosphatase (56-112) IU/L Troponin I (4.0-60.3) pg/mL Total Protein (6.0-8.0) g/dL Albumin (3.2-4.6) g/dL Globulin g/dL Albumin/Globulin Ratio SARS-CoV-2 RNA (SANDOVAL) Negative (NEGATIVE) Med Orders - Current: Current Medications Acetaminophen (Acetaminophen 500 Mg Tab) 500 mg PO Q12H PRN PRN Reason: Pain Acetaminophen (Acetaminophen 500 Mg Tab) 1,000 mg PO TID [facility] Last Admin: 01/02/21 08:39 Dose: 1,000 mg Documented by: Atorvastatin Calcium (Atorvastatin 40 Mg Tab *Ptom) 40 mg PO BEDTIME [facility] Last Admin: 01/01/21 20:31 Dose: 40 mg Documented by: Ceftriaxone Sodium (Ceftriaxone 1 Gm Vial) 1 gm IVPUSH Q24H [facility] Last Admin: 01/01/21 14:01 Dose: 1 gm Documented by: Celecoxib (Celecoxib 100 Mg Cap) 100 mg PO DAILY PRN PRN Reason: Pain Cyanocobalamin (Cyanocobalamin (Vitamin B12) 500 Mcg Tab *Ptom) 500 mcg PO DAILY [facility] Last Admin: 01/02/21 08:43 Dose: 500 mcg Documented by: Diclofenac Sodium (Diclofenac Sodium 1% Gel 100 Gm Tube) 2 gm TOP QID [facility] Last Admin: 01/02/21 08:41 Dose: 1 applic Documented by: Enoxaparin Sodium (Enoxaparin 30 Mg/0.3 Ml Syringe) 30 mg SUBCUT Q24H [facility] Last Admin: 01/01/21 15:48 Dose: 30 mg Documented by: Fish Oil (Fish Oil/[place]-3 Fatty Acids 1 Gm Cap *Ptom) 1 gm PO DAILY [facility] Last Admin: 01/02/21 08:40 Dose: 1 gm Documented by: Gabapentin (Gabapentin 100 Mg Cap *Ptom) 100 mg PO BEDTIME [facility] Last Admin: 01/01/21 20:32 Dose: 100 mg Documented by: Magnesium Chloride (Magnesium Chloride 64 Mg Tab.Er *Ptom) 128 mg PO DAILY [facility] Last Admin: 01/02/21 08:40 Dose: 128 mg Documented by: Nifedipine (Nifedipine 60 Mg Tab.Er *Ptom) 60 mg PO DAILY [facility] Last Admin: 01/02/21 08:39 Dose: 60 mg Documented by: Non-Formulary Medication (.Licocaine Hcl/Hydrocortisone) 1 applic RECTAL Q8H PRN PRN Reason: Hemmorhoids Pain/Itch Non-Formulary Medication (Lidocaine 5% [Lidoderm 5%]) 1 patch TOP DAILY [facility] Metoprolol Er 200mg (Tab *Ptom) 0 each PO DAILY [facility] Last Admin: 01/02/21 08:39 Dose: 1 each Documented by: Ondansetron HCl (Ondansetron 4 Mg/2 Ml Sdv) 4 mg IVPUSH Q4H PRN PRN Reason: Nausea/Vomiting Polyethylene Glycol (Polyethylene Glycol 3350 Powder 17 Gm Packet) 17 gm PO DAILY PRN PRN Reason: Constipation Quetiapine Fumarate (Quetiapine 25 Mg Tab) 12.5 mg PO BEDTIME PRN PRN Reason: Sleep Senna/Docusate Sodium (Docusate Sodium/Sennosides 50-8.6 Mg Tab) 1 tab PO BID PRN PRN Reason: Constipation Sodium Chloride (Sodium Chloride 0.9% 10 Ml Syringe) 10 ml FLUSH ASDIRECTED PRN PRN Reason: Keep Vein Open Last Admin: 01/01/21 12:10 Dose: 10 ml Documented by: Tramadol HCl (Tramadol 50 Mg Tab) 100 mg PO TID [facility] Last Admin: 01/02/21 08:38 Dose: 100 mg Documented by: Discontinued Medications Acetaminophen (Acetaminophen 500 Mg Tab) 1,000 mg PO ONETIME ONE Stop: 01/01/21 11:43 Last Admin: 01/01/21 11:57 Dose: 1,000 mg Documented by: Sodium Chloride (Normal Saline) 1,000 mls @ 500 mls/hr IV ASDIRECTED [facility] Last Admin: 01/01/21 12:10 Dose: 500 mls/hr Documented by: Sodium Chloride (Normal Saline) 1,000 mls @ 100 mls/hr IV ASDIRECTED [facility] Last Admin: 01/01/21 14:11 Dose: 100 mls/hr Documented by: Labetalol HCl (Labetalol 20 Mg/4 Ml Syringe) 20 mg IVPUSH ONETIME ONE; Protocol Stop: 01/01/21 11:40 Last Admin: 01/01/21 12:11 Dose: Not Given Documented by: Metoprolol Succinate (Metoprolol Succinate 100 Mg Tab.Er) 200 mg PO NOW STA Stop: 01/01/21 11:45 Last Admin: 01/01/21 11:58 Dose: 200 mg Documented by: Miscellaneous Information (Remove Patch) 1 ea TRDERM ONETIME ONE Stop: 01/01/21 21:01 Last Admin: 01/01/21 20:50 Dose: Not Given Documented by: Naproxen (Naproxen 500 Mg Tab) 500 mg PO Q12H PRN PRN Reason: Pain Nifedipine (Nifedipine 60 Mg Tab.Er) 60 mg PO NOW STA Stop: 01/01/21 11:45 Last Admin: 01/01/21 11:59 Dose: 60 mg Documented by: Tramadol HCl (Tramadol 50 Mg Tab) 50 mg PO NOW STA Stop: 01/01/21 11:43 Last Admin: 01/01/21 11:57 Dose: 50 mg Documented by: Tramadol HCl (Tramadol 50 Mg Tab) 50 mg PO ONETIME ONE Stop: 01/01/21 14:46 Last Admin: 01/01/21 15:47 Dose: 50 mg Documented by: - Exam General: Alert, Oriented, Cooperative HEENT: Pupils Equal Lungs: Clear to Auscultation, Normal Respiratory Effort Cardiovascular: Regular Rate, Regular Rhythm - Patient Data Lab Results Last 24 hrs: Laboratory Results - last 24 hr 01/01/21 01/01/21 01/01/21 Range/Units 10:55 10:55 10:55 WBC 7.1 (3.0-10.3) x10-3/uL RBC 4.32 (3.60-5.20) x10(6)uL Hgb 13.1 D (11.4-15.5) g/dL Hct 40.9 D (34.2-48.2) % MCV 94.8 (76.7-100.5) fL MCH 30.4 (23.9-33.9) pg MCHC 32.1 (31.9-34.8) g/dL RDW 14.0 (12.3-16.5) % Plt Count 235 (151-488) x10(3)uL MPV 8.7 (7.1-12.4) fL Neut % (Auto) 59.3 (30.8-76.2) % Lymph % (Auto) 25.9 (18.4-52.1) % [place] % (Auto) 11.6 (4.4-15.7) % Eos % (Auto) 2.9 (0.6-8.1) % Baso % (Auto) 0.3 (0.2-1.5) % Neut # (Auto) 4.2 (1.5-6.3) x10-3/uL Lymph # (Auto) 1.8 (1.0-4.4) x10-3/uL [place] # (Auto) 0.8 (0.3-1.0) x10-3/uL Eos # (Auto) 0.2 (0.0-0.8) x10-3/uL Baso # (Auto) 0.0 (0.0-0.1) x10-3/uL Sodium 136 (135-145) mmol/L Potassium 4.9 (3.5-5.3) mmol/L Chloride 101 (100-110) mmol/L Carbon Dioxide 25 (21-32) mmol/L BUN 28 H D (7-18) mg/dL Creatinine 1.2 H (0.55-1.02) mg/dL Est Cr Clr Drug Dosing 24.17 mL/min Estimated GFR (MDRD) 43 L (>60) BUN/Creatinine Ratio 23.3 H (9-20) Glucose 102 (80-116) mg/dL Lactic Acid (0.4-2.0) mmol/L Calcium 10.6 H (8.6-10.2) mg/dL Magnesium (1.8-2.5) mg/dL Total Bilirubin 0.2 (0.1-1.3) mg/dL AST 39 H D (5-25) IU/L ALT 35 D (12-36) U/L Alkaline Phosphatase 298 H (56-112) IU/L Troponin I 7.7 (4.0-60.3) pg/mL Total Protein 7.9 (6.0-8.0) g/dL Albumin 3.5 (3.2-4.6) g/dL Globulin 4.4 g/dL Albumin/Globulin Ratio 0.8 SARS-CoV-2 RNA (SANDOVAL) (NEGATIVE) 01/01/21 01/01/21 01/02/21 Range/Units 10:55 11:50 05:55 WBC (3.0-10.3) x10-3/uL RBC (3.60-5.20) x10(6)uL Hgb (11.4-15.5) g/dL Hct (34.2-48.2) % MCV (76.7-100.5) fL MCH (23.9-33.9) pg MCHC (31.9-34.8) g/dL RDW (12.3-16.5) % Plt Count (151-488) x10(3)uL MPV (7.1-12.4) fL Neut % (Auto) (30.8-76.2) % Lymph % (Auto) (18.4-52.1) % [place] % (Auto) (4.4-15.7) % Eos % (Auto) (0.6-8.1) % Baso % (Auto) (0.2-1.5) % Neut # (Auto) (1.5-6.3) x10-3/uL Lymph # (Auto) (1.0-4.4) x10-3/uL [place] # (Auto) (0.3-1.0) x10-3/uL Eos # (Auto) (0.0-0.8) x10-3/uL Baso # (Auto) (0.0-0.1) x10-3/uL Sodium 137 (135-145) mmol/L Potassium 4.7 (3.5-5.3) mmol/L Chloride 104 (100-110) mmol/L Carbon Dioxide 25 (21-32) mmol/L BUN 25 H (7-18) mg/dL Creatinine 1.1 H (0.55-1.02) mg/dL Est Cr Clr Drug Dosing 26.37 mL/min Estimated GFR (MDRD) 47 L (>60) BUN/Creatinine Ratio 22.7 H (9-20) Glucose 90 (80-116) mg/dL Lactic Acid 1.2 (0.4-2.0) mmol/L Calcium 9.3 (8.6-10.2) mg/dL Magnesium 1.2 L* (1.8-2.5) mg/dL Total Bilirubin (0.1-1.3) mg/dL AST (5-25) IU/L ALT (12-36) U/L Alkaline Phosphatase (56-112) IU/L Troponin I (4.0-60.3) pg/mL Total Protein (6.0-8.0) g/dL Albumin (3.2-4.6) g/dL Globulin g/dL Albumin/Globulin Ratio SARS-CoV-2 RNA (SANDOVAL) Negative (NEGATIVE) Result Diagrams: 01/01/21 10:55 01/02/21 05:55 Sepsis Event Note - Evaluation Sepsis Screening Result: No Definite Risk - Focused Exam Vital Signs: Vital Signs Temp Pulse Resp BP Pulse Ox 01/02/21 07:20 98.1 F 68 18 150/61 H 98 01/02/21 06:28 98 F 69 18 166/63 H 97 01/02/21 01:59 98.2 F 62 18 148/56 H 96 01/01/21 23:00 97.8 F 68 18 162/56 H 96 - Problem List & Annotations (1) UTI (urinary tract infection) SNOMED Code(s): 49539400 Code(s): N39.0 - URINARY TRACT INFECTION, SITE NOT SPECIFIED Status: Acute Current Visit: Yes (2) Palliative care status SNOMED Code(s): 298039639 Code(s): Z51.5 - ENCOUNTER FOR PALLIATIVE CARE Status: Acute Current Visit: Yes (3) Dehydration SNOMED Code(s): 22373991 Code(s): E86.0 - DEHYDRATION Status: Acute Current Visit: Yes (4) Frail elderly SNOMED Code(s): 425790223 Code(s): R54 - AGE-RELATED PHYSICAL DEBILITY Status: Acute Current Visit: No - Problem List Review Problem List Initiated/Reviewed/Updated: Yes - My Orders Last 24 Hours: My Active Orders 01/01/21 17:49 Convert IV to Saline Lock [OM.PC] Routine - Plan Plan:: 1. Waiting for a copy of the urine from the clinic. Patient is doing well may consider discharging depending on what the urine shows. He should is definitely not dehydrated and she is alert and responsive doing well. The staff that knows her feels that she is back to her baseline.
--- NOTE | 2021-01-02 12:05 | PCM.DCSUM1 ---
Discharge Summary - Hospital Course Free Text/Narrative:: Hospital course-patient was given 2 L of fluid in the ER and then she had a lots of urination. So we stopped her IV fluids. She is put on Rocephin overnight for her UTI. By the time I saw her at the hospital she is mentating normally. She was not lethargic. We observed her overnight and she did well and she is back to her baseline. She had no lateralizing weakness and she is able to get up and move around. We retrieved the urine from [facility] showed 10-20 white blood cells. They stated it was being culture. Patient was doing well so we'll discharge her back to the alf on Cipro 250 twice a day for 7 days. This was the recommendation per pharmacy. Magnesium was low and she'll be treated for that by mouth. Kidneys are not change. Follow-up in a week with Sammy Arroyo. Brief History: Is an 85-year-old female patient states that she was sleeping in the chair and this morning the staff at [facility] came to arouse her and they couldn't because she was unresponsive. He brought her to the ER and was found to be dehydrated and have a UTI. She says she can't think very clearly at this point. She denies fevers or she does feel cold. She denies chest pain, shortness of breath, dysuria, pyuria, hematuria, abdominal pain or diarrhea. - Discharge Data Discharge Date: 01/02/21 Discharge Disposition: DC/Tfer to [facility] Condition: Fair - Referral to Home Health Primary Care Physician: Farhad Urban MD - Discharge Diagnosis/Problem(s) (1) UTI (urinary tract infection) SNOMED Code(s): 21146505 ICD Code: N39.0 - URINARY TRACT INFECTION, SITE NOT SPECIFIED Status: Acute Current Visit: Yes (2) Palliative care status SNOMED Code(s): 939152577 ICD Code: Z51.5 - ENCOUNTER FOR PALLIATIVE CARE Status: Acute Current Visit: Yes (3) Dehydration SNOMED Code(s): 60492361 ICD Code: E86.0 - DEHYDRATION Status: Acute Current Visit: Yes (4) Frail elderly SNOMED Code(s): 737644237 ICD Code: R54 - AGE-RELATED PHYSICAL DEBILITY Status: Acute Current Visit: No - Patient Summary/Data Consults: Consultations 01/01/21 13:41 OT Evaluation and Treatment [CONS] Routine Please Evaluate and Treat. OT Reason for Consult: Discharge Planning This query below is only for informational purposes and is not editable. PT Evaluation and Treatment [CONS] Routine Please Evaluate and Treat. PT Reason for Consult: Strengthening This query below is only for informational purposes and is not editable. - Patient Instructions Diet: Regular Diet as Tolerated Activity: As Tolerated Driving: Do Not Drive Showering/Bathing: May Shower Other/Special Instructions: Recheck with Sammy Arroyo in 1 week - Discharge Plan Prescriptions/Med Rec: Ciprofloxacin HCl [Cipro] 250 mg PO BID #14 tablet Home Medications: Home Meds Cyanocobalamin (Vitamin B12) [Vitamin B12] 500 mcg PO DAILY 30 Days #30 tablet 09/01/19 [Rx] Fish Oil/[place]-3 Fatty Acids [Fish Oil 1,000 MG] 1 gm PO DAILY 30 Days #30 cap 09/01/19 [Rx] Metoprolol Succinate [Toprol XL] 200 mg PO DAILY 30 Days #30 tab.sr.24h 09/01/19 [Rx] NIFEdipine [Procardia XL] 60 mg PO DAILY 30 Days #30 tab.er 09/01/19 [Rx] atorvaSTATin [Lipitor] 40 mg PO BEDTIME 30 Days #30 tablet 09/01/19 [Rx] polyethylene glycoL 3350 [MiraLAX] 17 gm PO DAILY PRN 30 Days #30 packet 09/01/19 [Rx] .Licocaine Hcl/Hydrocortisone 1 applic RECTAL Q8H PRN 09/17/19 [History] Diclofenac Sodium 2 gm TOP QID 09/24/20 [History] Gabapentin [Neurontin] 100 mg PO BEDTIME 09/24/20 [History] traMADol [Ultram] 100 mg PO TID 09/24/20 [History] Acetaminophen [Tylenol Extra Strength] 1,000 mg PO TID 01/01/21 [History] Acetaminophen [Tylenol Extra Strength] 500 mg PO Q12H PRN 01/01/21 [History] Celecoxib [CeleBREX] 100 mg PO DAILY PRN 01/01/21 [History] Lidocaine 5% [Lidoderm 5%] 1 patch TOP DAILY 01/01/21 [History] Loperamide [Imodium] 2 mg PO BID PRN 01/01/21 [History] Magnesium Chloride [Mag-64] 2 tab PO DAILY 01/01/21 [History] Naproxen 500 mg PO Q12H PRN 01/01/21 [History] QUEtiapine [SEROquel] 12.5 mg PO BEDTIME PRN 01/01/21 [History] Ciprofloxacin HCl [Cipro] 250 mg PO BID #14 tablet 01/02/21 [Rx] Patient Handouts: Weakness, [id number], Fall Prevention in Hospitals, Adult, Venous Thromboembolism Prevention Forms: ED Department Discharge Referrals: Farhad Urban MD [Primary Care Provider] - - Discharge Summary/Plan Comment DC Time >30 min.: No - Patient Data Vitals - Most Recent: Last Vital Signs Temp 98.1 F 01/02/21 07:20 Pulse 68 01/02/21 07:20 Resp 18 01/02/21 07:20 BP 150/61 H 01/02/21 07:20 Pulse Ox 98 01/02/21 07:20 Weight - Most Recent: 102 lb 1 oz I&O - Last 24 hours: Intake & Output 01/01/21 01/02/21 01/02/21 22:59 06:59 14:59 Intake Total 450 200 400 Output Total 600 300 400 Balance -150 -100 0 Lab Results - Last 24 hrs: Laboratory Results - last 24 hr 01/01/21 01/02/21 Range/Units 11:50 05:55 Sodium 137 (135-145) mmol/L Potassium 4.7 (3.5-5.3) mmol/L Chloride 104 (100-110) mmol/L Carbon Dioxide 25 (21-32) mmol/L BUN 25 H (7-18) mg/dL Creatinine 1.1 H (0.55-1.02) mg/dL Est Cr Clr Drug Dosing 26.37 mL/min Estimated GFR (MDRD) 47 L (>60) BUN/Creatinine Ratio 22.7 H (9-20) Glucose 90 (80-116) mg/dL Calcium 9.3 (8.6-10.2) mg/dL Magnesium 1.2 L* (1.8-2.5) mg/dL SARS-CoV-2 RNA (SANDOVAL) Negative (NEGATIVE) Med Orders - Current: Current Medications Acetaminophen (Acetaminophen 500 Mg Tab) 500 mg PO Q12H PRN PRN Reason: Pain Acetaminophen (Acetaminophen 500 Mg Tab) 1,000 mg PO TID [facility] Last Admin: 01/02/21 08:39 Dose: 1,000 mg Documented by: Atorvastatin Calcium (Atorvastatin 40 Mg Tab *Ptom) 40 mg PO BEDTIME [facility] Last Admin: 01/01/21 20:31 Dose: 40 mg Documented by: Ceftriaxone Sodium (Ceftriaxone 1 Gm Vial) 1 gm IVPUSH Q24H [facility] Last Admin: 01/01/21 14:01 Dose: 1 gm Documented by: Celecoxib (Celecoxib 100 Mg Cap) 100 mg PO DAILY PRN PRN Reason: Pain Cyanocobalamin (Cyanocobalamin (Vitamin B12) 500 Mcg Tab *Ptom) 500 mcg PO DAILY [facility] Last Admin: 01/02/21 08:43 Dose: 500 mcg Documented by: Diclofenac Sodium (Diclofenac Sodium 1% Gel 100 Gm Tube) 2 gm TOP QID [facility] Last Admin: 01/02/21 08:41 Dose: 1 applic Documented by: Enoxaparin Sodium (Enoxaparin 30 Mg/0.3 Ml Syringe) 30 mg SUBCUT Q24H [facility] Last Admin: 01/01/21 15:48 Dose: 30 mg Documented by: Fish Oil (Fish Oil/[place]-3 Fatty Acids 1 Gm Cap *Ptom) 1 gm PO DAILY [facility] Last Admin: 01/02/21 08:40 Dose: 1 gm Documented by: Gabapentin (Gabapentin 100 Mg Cap *Ptom) 100 mg PO BEDTIME [facility] Last Admin: 01/01/21 20:32 Dose: 100 mg Documented by: Magnesium Chloride (Magnesium Chloride 64 Mg Tab.Er *Ptom) 128 mg PO DAILY [facility] Last Admin: 01/02/21 08:40 Dose: 128 mg Documented by: Nifedipine (Nifedipine 60 Mg Tab.Er *Ptom) 60 mg PO DAILY [facility] Last Admin: 01/02/21 08:39 Dose: 60 mg Documented by: Non-Formulary Medication (.Licocaine Hcl/Hydrocortisone) 1 applic RECTAL Q8H PRN PRN Reason: Hemmorhoids Pain/Itch Non-Formulary Medication (Lidocaine 5% [Lidoderm 5%]) 1 patch TOP DAILY [facility] Metoprolol Er 200mg (Tab *Ptom) 0 each PO DAILY [facility] Last Admin: 01/02/21 08:39 Dose: 1 each Documented by: Ondansetron HCl (Ondansetron 4 Mg/2 Ml Sdv) 4 mg IVPUSH Q4H PRN PRN Reason: Nausea/Vomiting Polyethylene Glycol (Polyethylene Glycol 3350 Powder 17 Gm Packet) 17 gm PO DAILY PRN PRN Reason: Constipation Quetiapine Fumarate (Quetiapine 25 Mg Tab) 12.5 mg PO BEDTIME PRN PRN Reason: Sleep Senna/Docusate Sodium (Docusate Sodium/Sennosides 50-8.6 Mg Tab) 1 tab PO BID PRN PRN Reason: Constipation Sodium Chloride (Sodium Chloride 0.9% 10 Ml Syringe) 10 ml FLUSH ASDIRECTED PRN PRN Reason: Keep Vein Open Last Admin: 01/01/21 12:10 Dose: 10 ml Documented by: Tramadol HCl (Tramadol 50 Mg Tab) 100 mg PO TID [facility] Last Admin: 01/02/21 08:38 Dose: 100 mg Documented by: Discontinued Medications Acetaminophen (Acetaminophen 500 Mg Tab) 1,000 mg PO ONETIME ONE Stop: 01/01/21 11:43 Last Admin: 01/01/21 11:57 Dose: 1,000 mg Documented by: Sodium Chloride (Normal Saline) 1,000 mls @ 500 mls/hr IV ASDIRECTED [facility] Last Admin: 01/01/21 12:10 Dose: 500 mls/hr Documented by: Sodium Chloride (Normal Saline) 1,000 mls @ 100 mls/hr IV ASDIRECTED [facility] Last Admin: 01/01/21 14:11 Dose: 100 mls/hr Documented by: Labetalol HCl (Labetalol 20 Mg/4 Ml Syringe) 20 mg IVPUSH ONETIME ONE; Protocol Stop: 01/01/21 11:40 Last Admin: 01/01/21 12:11 Dose: Not Given Documented by: Metoprolol Succinate (Metoprolol Succinate 100 Mg Tab.Er) 200 mg PO NOW STA Stop: 01/01/21 11:45 Last Admin: 01/01/21 11:58 Dose: 200 mg Documented by: Miscellaneous Information (Remove Patch) 1 ea TRDERM ONETIME ONE Stop: 01/01/21 21:01 Last Admin: 01/01/21 20:50 Dose: Not Given Documented by: Naproxen (Naproxen 500 Mg Tab) 500 mg PO Q12H PRN PRN Reason: Pain Nifedipine (Nifedipine 60 Mg Tab.Er) 60 mg PO NOW STA Stop: 01/01/21 11:45 Last Admin: 01/01/21 11:59 Dose: 60 mg Documented by: Tramadol HCl (Tramadol 50 Mg Tab) 50 mg PO NOW STA Stop: 01/01/21 11:43 Last Admin: 01/01/21 11:57 Dose: 50 mg Documented by: Tramadol HCl (Tramadol 50 Mg Tab) 50 mg PO ONETIME ONE Stop: 01/01/21 14:46 Last Admin: 01/01/21 15:47 Dose: 50 mg Documented by:
== END 2021-01-02 12:30 ==
LOC: FB.ED 10:26 → FB.MS 13:41
PROVIDERS: ADMIT Emergency Medicine; ATTEND Family Medicine
DX: E86.0 Dehydration (principal); N39.0 Urinary tract infection, site not specified; E78.00 Pure hypercholesterolemia, unspecified; I12.9 Hypertensive chronic kidney disease with stage 1 through stage 4 chronic kidney disease, or unspecified chronic kidney disease; R54 Age-related physical debility; N18.9 Chronic kidney disease, unspecified; Z79.899 Other long term (current) drug therapy; Z90.49 Acquired absence of other specified parts of digestive tract; Z20.822 Contact with and (suspected) exposure to COVID-19
CPT/HCPCS: 36415; 71045; 80048; 80053; 83605; 83735; 84484; 85025; 96372; 96374; 97165-GO; 99285-25; A9270-GY; G0378; J0696; J1650; J7030; U0002

== ENCOUNTER 2021-06-14 16:46 | Emergency (ER) | payer MEDICARE, OTHER ==
[2021-06-14] MEDS ORDERED: Glucagon,Human Recombinant 1 MG Vial IM PRN (17:23)
[2021-06-14] MEDS ORDERED: Sodium Bicarbonate 8.4% 50 MEQ/50 ML Syringe IVPUSH STA (17:23)
[2021-06-14] MEDS ORDERED: 50% Dextrose in Water 50 ML Syringe IVPUSH ONE (17:23)
[2021-06-14] MEDS ORDERED: Sodium Chloride 0.9% 10 ML Syringe FLUSH PRN (17:23)
[2021-06-14] MEDS ORDERED: 50% Dextrose in Water 50 ML Syringe IVPUSH PRN (17:23)
[2021-06-14] MEDS ORDERED: Insulin Regular, Human 100 Units/ML 3 ML Vial SUBCUT STA (17:23)
--- NOTE | 2021-06-14 17:23 | EDM.PDOC ---
ED HPI GENERAL MEDICAL PROBLEM - General Chief Complaint: General Stated Complaint: HIGH POTASSIUM Time Seen by Provider: 06/14/21 16:50 Source of Information: Reports: Patient History Limitations: Reports: No Limitations - History of Present Illness INITIAL COMMENTS - FREE TEXT/NARRATIVE: Patient presented to the ED because of an elevated potassium. She is otherwise asymptomatic. There is no chest pain, palpitations, N/V. - Related Data Allergies Allergy/AdvReac Type Severity Reaction Status Date / Time No Known Allergies Allergy Verified 06/14/21 16:59 Home Meds: Home Meds Cyanocobalamin (Vitamin B12) [Vitamin B12] 500 mcg PO DAILY 30 Days #30 tablet 09/01/19 [Rx] Fish Oil/[place]-3 Fatty Acids [Fish Oil 1,000 MG] 1 gm PO DAILY 30 Days #30 cap 09/01/19 [Rx] Metoprolol Succinate [Toprol XL] 200 mg PO DAILY 30 Days #30 tab.sr.24h 09/01/19 [Rx] NIFEdipine [Procardia XL] 60 mg PO DAILY 30 Days #30 tab.er 09/01/19 [Rx] atorvaSTATin [Lipitor] 40 mg PO BEDTIME 30 Days #30 tablet 09/01/19 [Rx] polyethylene glycoL 3350 [MiraLAX] 17 gm PO DAILY PRN 30 Days #30 packet 09/01/19 [Rx] .Licocaine Hcl/Hydrocortisone 1 applic RECTAL Q8H PRN 09/17/19 [History] Diclofenac Sodium 2 gm TOP QID 09/24/20 [History] Gabapentin [Neurontin] 100 mg PO BEDTIME 09/24/20 [History] traMADol [Ultram] 100 mg PO TID 09/24/20 [History] Acetaminophen [Tylenol Extra Strength] 1,000 mg PO TID 01/01/21 [History] Acetaminophen [Tylenol Extra Strength] 500 mg PO Q12H PRN 01/01/21 [History] Celecoxib [CeleBREX] 100 mg PO DAILY PRN 01/01/21 [History] Lidocaine 5% [Lidoderm 5%] 1 patch TOP DAILY 01/01/21 [History] Loperamide [Imodium] 2 mg PO BID PRN 01/01/21 [History] Magnesium Chloride [Mag-64] 2 tab PO DAILY 01/01/21 [History] Naproxen 500 mg PO Q12H PRN 01/01/21 [History] QUEtiapine [SEROquel] 12.5 mg PO BEDTIME PRN 01/01/21 [History] Ciprofloxacin HCl [Cipro] 250 mg PO BID #14 tablet 01/02/21 [Rx] Past Medical History HEENT History: Reports: Cataract, Impaired Vision Other HEENT History: wears eye glasses. Cardiovascular History: Reports: High Cholesterol, Hypertension Respiratory History: Reports: SOB Other Respiratory History: Patient states her back problems are causing respiratory concerns. Gastrointestinal History: Reports: Chronic Constipation, GERD Other Gastrointestinal History: NAUSEA AT TIMES. Genitourinary History: Reports: Renal Disease, Other (See Below) Other Genitourinary History: CKD W[employer] HANGER History: Reports: Musculoskeletal History: Reports: Arthritis, Back Pain, Chronic, Fracture, Osteoarthritis, Osteoporosis, Other (See Below) Other Musculoskeletal History: kyphosis. scoliosis. right hip fracture unfixed Neurological History: Reports: CVA Other Neuro History: ? CVA LIKE SYMPTOMS. NO CVA DIAGNOSISED THOUGH. Psychiatric History: Reports: Dementia Hematologic History: Reports: Anemia, Iron Deficiency - Infectious Disease History Infectious Disease History: Reports: Chicken Pox, Measles, Mumps - Past Surgical History HEENT Surgical History: Reports: Cataract Surgery Cardiovascular Surgical History: Reports: None Respiratory Surgical History: Reports: None GI Surgical History: Reports: Appendectomy Neurological Surgical History: Reports: None Musculoskeletal Surgical History: Reports: Hip Replacement Other Musculoskeletal Surgeries/Procedures:: TRINO. HIPS, HAD TWO BACK FUSIONS IN PAST. Social & Family History - Family History Family Medical History: No Pertinent Family History - Tobacco Use Tobacco Use Status *Q: Former Tobacco User Used Tobacco, but Quit: Yes Month/Year Tobacco Last Used: 1966 - Caffeine Use Caffeine Use: Reports: Coffee - Recreational Drug Use Recreational Drug Use: No - Living Situation & Occupation Living situation: Reports: Other (She is a resident of the memory unit at [facility]) ED ROS GENERAL - Review of Systems Review Of Systems: See Below Constitutional: Reports: No Symptoms HEENT: Reports: No Symptoms Respiratory: Reports: No Symptoms Cardiovascular: Reports: No Symptoms Endocrine: Reports: No Symptoms GI/Abdominal: Reports: No Symptoms : Reports: No Symptoms Musculoskeletal: Reports: No Symptoms Skin: Reports: No Symptoms Neurological: Reports: No Symptoms Psychiatric: Reports: No Symptoms ED EXAM, GENERAL - Physical Exam Exam: See Below Exam Limited By: No Limitations General Appearance: Alert, No Apparent Distress Eye Exam: Bilateral Eye: PERRL Ears: Normal External Exam, Normal Canal Nose: Normal Inspection, Normal Mucosa, No Blood Throat/Mouth: Normal Inspection, Normal Lips, Normal Teeth Head: Atraumatic, Normocephalic Neck: Normal Inspection, Supple, Non-Tender Respiratory/Chest: No Respiratory Distress, Lungs Clear, Normal Breath Sounds, No Accessory Muscle Use Cardiovascular: Normal Peripheral Pulses, Regular Rate, Rhythm, No Edema GI/Abdominal: Normal Bowel Sounds, Soft, Non-Tender, No Organomegaly, No Distention, No Abnormal Bruit, No Mass Back Exam: Normal Inspection, Full Range of Motion Extremities: Normal Inspection, Normal Range of Motion, Non-Tender, No Pedal Edema Neurological: Alert, Oriented, CN II-XII Intact Course - Vital Signs Text/Narrative:: Lab result was reviewed and discussed with patient NS 1 L bolus D50 IV Sodium Bicar 8.4 % IV Regular insulin 10 mg SC x1 Calcium gluconate 1 gm IV x1 Last Recorded V/S: Last Vital Signs Temp 36.5 C 06/14/21 16:46 Pulse 56 L 06/14/21 16:46 Resp 18 06/14/21 16:46 BP 137/42 L 06/14/21 16:46 Pulse Ox 96 06/14/21 16:46 - Orders/Labs/Meds Orders: Active Orders 24 hr Category Date Time Status Dextrose 50% in Water Med 06/14/21 17:23 Active 50 ml IVPUSH ASDIRECTED PRN Glucagon,Human Recombinant [GlucaGen] Med 06/14/21 17:23 Active 1 mg IM ASDIRECTED PRN Sodium Chloride 0.9% [Normal Saline] 1,000 ml Med 06/14/21 17:30 Active IV ASDIRECTED Sodium Chloride 0.9% [Saline Flush] Med 06/14/21 17:23 Active 10 ml FLUSH ASDIRECTED PRN Saline Lock Insert [OM.PC] Routine Oth 06/14/21 17:23 Ordered Medication Orders Dextrose/Water (50% Dextrose In Water 50 Ml Syringe) 50 ml IVPUSH ASDIRECTED PRN PRN Reason: Hypoglycemia Glucagon (Glucagon,Human Recombinant 1 Mg Vial) 1 mg IM ASDIRECTED PRN PRN Reason: Hypoglycemia Sodium Chloride (Normal Saline) 1,000 mls @ 999 mls/hr IV ASDIRECTED ASHLEY Last Admin: 10/29/21 18:07 Dose: 999 mls/hr Documented by: LIS Sodium Chloride (Sodium Chloride 0.9% 10 Ml Syringe) 10 ml FLUSH ASDIRECTED PRN PRN Reason: Keep Vein Open Last Admin: 06/14/21 18:07 Dose: 10 ml Documented by: LIS Labs: Laboratory Tests 06/14/21 06/14/21 Range/Units 17:00 19:00 Sodium 138 142 (135-145) mmol/L Potassium 5.9 H D 4.6 D (3.5-5.3) mmol/L Chloride 105 109 (100-110) mmol/L Carbon Dioxide 25 26 (21-32) mmol/L BUN 30 H 28 H (7-18) mg/dL Creatinine 1.2 H 1.1 H (0.55-1.02) mg/dL Est Cr Clr Drug Dosing 23.61 25.76 mL/min Estimated GFR (MDRD) 43 L 47 L (>60) BUN/Creatinine Ratio 25.0 H 25.5 H (9-20) Glucose 114 63 L (80-116) mg/dL Calcium 10.4 H 10.2 (8.6-10.2) mg/dL Meds: Medications Generic Name Dose Route Start Last Admin Trade Name Freq PRN Reason Stop Dose Admin Dextrose/Water 50 ml 06/14/21 17:23 50% Dextrose In Water 50 Ml Syringe IVPUSH ASDIRECTED PRN Hypoglycemia Glucagon 1 mg 06/14/21 17:23 Glucagon,Human Recombinant 1 Mg Vial IM ASDIRECTED PRN Hypoglycemia Sodium Chloride 1,000 mls @ 999 mls/hr 06/14/21 17:30 06/14/21 18:07 Normal Saline IV 999 mls/hr ASDIRECTED ASHLEY Administration Sodium Chloride 10 ml 06/14/21 17:23 06/14/21 18:07 Sodium Chloride 0.9% 10 Ml Syringe FLUSH 10 ml ASDIRECTED PRN Administration Keep Vein Open Discontinued Medications Generic Name Dose Route Start Last Admin Trade Name Freq PRN Reason Stop Dose Admin Calcium Gluconate 1 gm 06/14/21 17:27 06/14/21 18:10 Calcium Gluconate 10% 1 Gm/10 Ml Sdv IVPUSH 06/14/21 17:28 1 gm NOW STA Administration Dextrose/Water 50 ml 06/14/21 17:23 06/14/21 18:07 50% Dextrose In Water 50 Ml Syringe IVPUSH 06/14/21 17:24 50 ml ONETIME ONE Administration Insulin Human Regular 10 unit 06/14/21 17:23 06/14/21 18:09 Insulin Regular, Human 100 Units/Ml 3 Ml Vial SUBCUT 06/14/21 17:24 10 units NOW STA Administration Sodium Bicarbonate 50 meq 06/14/21 17:23 06/14/21 17:43 Sodium Bicarbonate 8.4% 50 Meq/50 Ml Syringe IVPUSH 06/14/21 17:24 50 meq NOW STA Administration Departure - Departure Time of Disposition: 19:30 Disposition: Home, Self-Care 01 Condition: Good Clinical Impression: Hyperkalemia, Dehydration - Discharge Information Instructions: Hyperkalemia, [id number], Dehydration, Elderly, [id number] Referrals: Sammy Arroyo PA [Primary Care Provider] - Forms: ED Department Discharge Additional Instructions: Please read discharge instructions on dehydration and high potassium Your potassium is now back to normal Drink 2 liters of water daily Follow up as needed Sepsis Event Note (ED) - Evaluation Sepsis Screening Result: No Definite Risk - Focused Exam Vital Signs: Vital Signs Temp Pulse Resp BP Pulse Ox 06/14/21 16:46 36.5 C 56 L 18 137/42 L 96 - My Orders Last 24 Hours: My Active Orders 06/14/21 17:23 Dextrose 50% in Water 50 ml IVPUSH ASDIRECTED PRN Glucagon,Human Recombinant [GlucaGen] 1 mg IM ASDIRECTED PRN Sodium Chloride 0.9% [Saline Flush] 10 ml FLUSH ASDIRECTED PRN Saline Lock Insert [OM.PC] Routine 06/14/21 17:30 Sodium Chloride 0.9% [Normal Saline] 1,000 ml IV ASDIRECTED - Assessment/Plan Last 24 Hours: My Active Orders 06/14/21 17:23 Dextrose 50% in Water 50 ml IVPUSH ASDIRECTED PRN Glucagon,Human Recombinant [GlucaGen] 1 mg IM ASDIRECTED PRN Sodium Chloride 0.9% [Saline Flush] 10 ml FLUSH ASDIRECTED PRN Saline Lock Insert [OM.PC] Routine 06/14/21 17:30 Sodium Chloride 0.9% [Normal Saline] 1,000 ml IV ASDIRECTED
[2021-06-14] MEDS ORDERED: Calcium Gluconate 10% 1 GM/10 ML SDV IVPUSH STA (17:27)
[2021-06-14] MEDS ORDERED: Sodium Chloride 0.9% 1,000 ML IV SCH (17:30)
== END 2021-06-14 19:50 | disposition home or self-care (01) ==
LOC: FB.ED 16:46
DX: E87.5 Hyperkalemia (principal); E86.0 Dehydration; E78.00 Pure hypercholesterolemia, unspecified; I12.9 Hypertensive chronic kidney disease with stage 1 through stage 4 chronic kidney disease, or unspecified chronic kidney disease; N18.9 Chronic kidney disease, unspecified; K21.9 Gastro-esophageal reflux disease without esophagitis; F03.90 Unspecified dementia, unspecified severity, without behavioral disturbance, psychotic disturbance, mood disturbance, and anxiety; Z87.891 Personal history of nicotine dependence; Z79.899 Other long term (current) drug therapy
CPT/HCPCS: 36415; 80048; 96374; 96375; 99284-25; J0610; J1815-GY; J7030

== ENCOUNTER 2023-07-22 10:21 | Inpatient (IN) | payer MEDICARE, OTHER ==
[2023-07-22] MEDS ORDERED: Sodium Chloride 0.9% 1,000 ML IV ONE ×2 (10:58→12:03)
[2023-07-22 11:35] LABS: BASOPHILS PERCENT AUTO 0.5 % (0.2-1.5); BLOOD UREA NITROGEN,BUN 52 mg/dL (7-18); BUN/CREATININE RATIO 30.6 (9-20); CALCIUM 11.2 mg/dL (8.6-10.2); CARBON DIOXIDE,CO2 22 mmol/L (21-32); CHLORIDE,CL 105 mmol/L (100-110); CREATININE 1.7 mg/dL (0.55-1.02); EOSINOPHILS ABSOLUTE AUTO 0.1 x10-3/uL (0.0-0.8); EOSINOPHILS PERCENT AUTO 1.4 % (0.6-8.1); ESTIMATED GFR 28 mL/min (>60); GLUCOSE RANDOM 114 mg/dL (80-116); HEMATOCRIT 37.8 % (34.2-48.2); HEMOGLOBIN 12.2 g/dL (11.4-15.5); LYMPHOCYTES ABSOLUTE AUTO 1.6 x10-3/uL (1.0-4.4); LYMPHOCYTES PERCENT AUTO 20.7 % (18.4-52.1); MEAN CORPUSCULAR HEMOGLOBIN 31.4 pg (23.9-33.9); MEAN CORPUSCULAR HGB CONC 32.4 g/dL (31.9-34.8); MEAN CORPUSCULAR VOLUME 96.9 fL (76.7-100.5); MEAN PLATELET VOLUME 7.8 fL (7.1-12.4); NEUTROPHILS ABSOLUTE AUTO 5.1 x10-3/uL (1.5-6.3); NEUTROPHILS PERCENT AUTO 64.4 % (30.8-76.2); PLATELET COUNT,PLT 309 x10(3)uL (151-488); POTASSIUM,K 5.9 mmol/L (3.5-5.3); RED CELL DISTRIBUTION WIDTH 14.8 % (12.3-16.5); SODIUM,NA 136 mmol/L (135-145); WHITE BLOOD CELL COUNT,WBC 7.9 x10-3/uL (3.0-10.3)
[2023-07-22 11:41] LABS: A/G RATIO 0.8; ALANINE AMINOTRANSFERASE,ALT 16 U/L (12-36); ALBUMIN 3.6 g/dL (2.9-4.5); ALKALINE PHOSPHATASE 99 IU/L (56-112); ASPARTATE AMNIOTRANSFERASE,AST 16 IU/L (5-25); BILIRUBIN TOTAL 0.2 mg/dL (0.1-1.3); CREATINE KINASE,CK 36 IU/L (60-160); PROTEIN TOTAL,TP 8.1 g/dL (6.0-8.0)
[2023-07-22 11:43] LABS: BILIRUBIN,URINE NEGATIVE (NEGATIVE); GLUCOSE,URINE NORMAL (NORMAL); KETONES,URINE NEGATIVE (NEGATIVE); LEUKOCYTE ESTERASE,URINE NEGATIVE (NEGATIVE); NITRITE,URINE NEGATIVE (NEGATIVE); OCCULT BLOOD,URINE NEGATIVE (NEGATIVE); PROTEIN,URINE TRACE mg/dL (NEGATIVE); UROBILINOGEN,URINE NORMAL (NEGATIVE)
[2023-07-22 11:49] LABS: TROPONIN I 9.1 pg/mL (4.0-60.3)
[2023-07-22 11:51] LABS: C-REACTIVE PROTEIN < 0.50 mg/dL (<0.50)
[2023-07-22 11:52] LABS: APPEARANCE,URINE CLEAR (CLEAR); BACTERIA,URINE FEW (NS); COLOR,URINE YELLOW (YELLOW); SQUAMOUS EPITHELIAL CELLS,UR OCCASIONAL (NS,R,O); WBC,URINE 0-5 (0-5)
[2023-07-22 13:34] LABS: INFLUENZA A NAA NEGATIVE (NEGATIVE); INFLUENZA B NAA NEGATIVE (NEGATIVE); RESPIRATORY SYNCYTIAL VIR NAA NEGATIVE (NEGATIVE)
[2023-07-22 14:00] LABS: CORONAVIRUS COVID-19 NAA POSITIVE (NEGATIVE)
[2023-07-22] MEDS ORDERED: Polyethylene Glycol 3350 Powder 17 GM Packet PO PRN (16:23)
[2023-07-22] MEDS ORDERED: Naproxen 500 MG Tab PO PRN (16:23)
[2023-07-22] MEDS ORDERED: QUEtiapine 25 MG Tab PO PRN (16:23)
[2023-07-22] MEDS: Dextrose 5%-0.45% NaCl 1,000 ML IV SCH (16:38)
[2023-07-22] MEDS: Enoxaparin 30 MG/0.3 ML Syringe SUBCUT SCH (17:28)
[2023-07-22] MEDS: Gabapentin 100 MG Cap PO SCH (21:31)
[2023-07-22] MEDS: Acetaminophen 500 MG Tab PO SCH (21:32)
[2023-07-23] MEDS: Dextrose 5%-0.45% NaCl 1,000 ML IV SCH (06:01)
[2023-07-23 06:23] LABS: BASOPHILS PERCENT AUTO 0.6 % (0.2-1.5); EOSINOPHILS ABSOLUTE AUTO 0.1 x10-3/uL (0.0-0.8); EOSINOPHILS PERCENT AUTO 2.6 % (0.6-8.1); HEMOGLOBIN 10.7 g/dL (11.4-15.5); LYMPHOCYTES ABSOLUTE AUTO 1.5 x10-3/uL (1.0-4.4); LYMPHOCYTES PERCENT AUTO 30.4 % (18.4-52.1); MEAN CORPUSCULAR HEMOGLOBIN 31.3 pg (23.9-33.9); MEAN CORPUSCULAR HGB CONC 32.4 g/dL (31.9-34.8); MEAN CORPUSCULAR VOLUME 96.5 fL (76.7-100.5); MEAN PLATELET VOLUME 7.4 fL (7.1-12.4); MONOCYTES ABSOLUTE AUTO 0.7 x10-3/uL (0.3-1.0); MONOCYTES PERCENT AUTO 13.3 % (4.4-15.7); NEUTROPHILS ABSOLUTE AUTO 2.6 x10-3/uL (1.5-6.3); NEUTROPHILS PERCENT AUTO 53.1 % (30.8-76.2); PLATELET COUNT,PLT 254 x10(3)uL (151-488); RED BLOOD CELL COUNT 3.42 x10(6)uL (3.60-5.20); RED CELL DISTRIBUTION WIDTH 14.8 % (12.3-16.5); WHITE BLOOD CELL COUNT,WBC 4.9 x10-3/uL (3.0-10.3)
[2023-07-23 06:27] LABS: BLOOD UREA NITROGEN,BUN 33 mg/dL (7-18); CARBON DIOXIDE,CO2 20 mmol/L (21-32); CHLORIDE,CL 108 mmol/L (100-110); CREATININE 1.1 mg/dL (0.55-1.02); ESTIMATED GFR 48 mL/min (>60); GLUCOSE RANDOM 100 mg/dL (80-116); POTASSIUM,K 5.3 mmol/L (3.5-5.3); SODIUM,NA 137 mmol/L (135-145)
[2023-07-23] MEDS: Cyanocobalamin (Vitamin B12) 500 MCG Tab PO SCH (08:15)
[2023-07-23] MEDS: Cholecalciferol (Vitamin D3) 25 MCG Tab PO SCH (08:15)
[2023-07-23] MEDS: Metoprolol Succinate 100 MG Tab.ER PO SCH (08:16)
[2023-07-23] MEDS: Acetaminophen 500 MG Tab PO SCH ×3 (08:16→20:27)
[2023-07-23] MEDS: Magnesium Chloride 64 MG Tab.ER PO SCH (08:17)
[2023-07-23] MEDS: Enoxaparin 30 MG/0.3 ML Syringe SUBCUT SCH (17:59)
[2023-07-23] MEDS: Gabapentin 100 MG Cap PO SCH (20:26)
[2023-07-24] MEDS: Metoprolol Succinate 100 MG Tab.ER PO SCH ×2 (06:30→08:06)
[2023-07-24 07:03] LABS: BASOPHILS PERCENT AUTO 0.7 % (0.2-1.5); EOSINOPHILS ABSOLUTE AUTO 0.2 x10-3/uL (0.0-0.8); EOSINOPHILS PERCENT AUTO 3.1 % (0.6-8.1); HEMATOCRIT 36.5 % (34.2-48.2); HEMOGLOBIN 11.9 g/dL (11.4-15.5); LYMPHOCYTES PERCENT AUTO 35.4 % (18.4-52.1); MEAN CORPUSCULAR HEMOGLOBIN 31.8 pg (23.9-33.9); MEAN CORPUSCULAR HGB CONC 32.5 g/dL (31.9-34.8); MEAN CORPUSCULAR VOLUME 97.8 fL (76.7-100.5); MEAN PLATELET VOLUME 7.9 fL (7.1-12.4); MONOCYTES ABSOLUTE AUTO 0.7 x10-3/uL (0.3-1.0); NEUTROPHILS ABSOLUTE AUTO 2.7 x10-3/uL (1.5-6.3); NEUTROPHILS PERCENT AUTO 48.8 % (30.8-76.2); PLATELET COUNT,PLT 287 x10(3)uL (151-488); RED BLOOD CELL COUNT 3.73 x10(6)uL (3.60-5.20); RED CELL DISTRIBUTION WIDTH 14.9 % (12.3-16.5); WHITE BLOOD CELL COUNT,WBC 5.6 x10-3/uL (3.0-10.3)
[2023-07-24 07:13] LABS: BLOOD UREA NITROGEN,BUN 24 mg/dL (7-18); CALCIUM 10.8 mg/dL (8.6-10.2); CARBON DIOXIDE,CO2 20 mmol/L (21-32); CHLORIDE,CL 108 mmol/L (100-110); EST CRCL DRUG DOSING (CG) 27.39 mL/min; ESTIMATED GFR 54 mL/min (>60); GLUCOSE RANDOM 95 mg/dL (80-116); POTASSIUM,K 5.5 mmol/L (3.5-5.3); SODIUM,NA 137 mmol/L (135-145)
[2023-07-24] MEDS: Acetaminophen 500 MG Tab PO SCH (07:59)
[2023-07-24] MEDS: Magnesium Chloride 64 MG Tab.ER PO SCH (07:59)
[2023-07-24] MEDS: Cholecalciferol (Vitamin D3) 25 MCG Tab PO SCH (08:03)
[2023-07-24] MEDS: Cyanocobalamin (Vitamin B12) 500 MCG Tab PO SCH (08:03)
[2023-07-24] MEDS ORDERED: Labetalol 20 MG/4 ML Syringe IVPUSH ONE (08:46)
[2023-07-24] MEDS ORDERED: Ketorolac 30 MG/ML SDV IVPUSH ONE (08:46)
[2023-07-24] MEDS ORDERED: Ketorolac 30 MG/ML SDV IM ONE (10:15)
[2023-07-24] MEDS ORDERED: cloNIDine 0.1 MG Tab PO ONE (10:15)
== END 2023-07-24 10:26 | disposition home health service (06) | DRG 64 ==
LOC: FB.ED 10:21 → FB.MS 16:14
PROVIDERS: ADMIT Family Medicine; ATTEND Family Medicine
DX: I63.532 Cerebral infarction due to unspecified occlusion or stenosis of left posterior cerebral artery (principal); U07.1 COVID-19; G46.4 Cerebellar stroke syndrome; G93.40 Encephalopathy, unspecified; Z66 Do not resuscitate; N17.9 Acute kidney failure, unspecified; I12.9 Hypertensive chronic kidney disease with stage 1 through stage 4 chronic kidney disease, or unspecified chronic kidney disease; S00.83XA Contusion of other part of head, initial encounter; K21.9 Gastro-esophageal reflux disease without esophagitis; E78.5 Hyperlipidemia, unspecified; Z90.49 Acquired absence of other specified parts of digestive tract; Z20.822 Contact with and (suspected) exposure to COVID-19; W19.XXXA Unspecified fall, initial encounter; N18.9 Chronic kidney disease, unspecified; E87.5 Hyperkalemia; Z51.5 Encounter for palliative care; R29.6 Repeated falls; D50.9 Iron deficiency anemia, unspecified; D63.1 Anemia in chronic kidney disease; E83.52 Hypercalcemia; R53.1 Weakness; E86.0 Dehydration; M19.90 Unspecified osteoarthritis, unspecified site; Z98.49 Cataract extraction status, unspecified eye; Z96.649 Presence of unspecified artificial hip joint; Z79.899 Other long term (current) drug therapy; W01.0XXA Fall on same level from slipping, tripping and stumbling without subsequent striking against object, initial encounter
CPT/HCPCS: 0241U; 36415; 70450; 71045; 71250; 73090; 80048; 80053; 81001; 82550; 83605; 83735; 84443; 84484; 85025; 86140; 93005; 96361; 96365; 99285-25; A9270-GY; C1758; J1650; J1885; J3475; J3490; J7030; J7042